=== PATIENT | male | born 1940 | race Caucasian/White ===

== ENCOUNTER 2017-02-11 07:23 | Inpatient (IN) | payer MEDICARE, BC ==
[2017-02-11] MEDS ORDERED: ALBUTEROL NEBULIZED 2.5 MG/3 ML INHALATION STA (07:45)
[2017-02-11] MEDS ORDERED: IPRATROPIUM 0.5 MG/2.5 ML NEBU INHALATION STA (07:45)
[2017-02-11] MEDS ORDERED: SODIUM CHLORIDE 0.9% 500 ML IV STA (07:45)
[2017-02-11] MEDS ORDERED: methylPREDNISolone SOD SUCCI 125 MG/2 ML VIAL IV STA (07:45)
--- NOTE | 2017-02-11 07:48 | ED ---
General Adult HPI - General Chief complaint: Shortness of Breath Stated complaint: diff breathing Time Seen by Provider: 02/11/17 07:25 Source: patient, family, RN notes reviewed Mode of arrival: wheelchair Limitations: no limitations - History of Present Illness Initial comments: This is a 76-year-old male who presents emergency Department stating that his past medical history significant for COPD as well as having had a pacemaker placed with the defibrillator. Patient states for the last week he said difficulty breathing has been getting worse. Patient states been stuck in [place] because of the fluttering and has an unable to get home to see his doctor. Patient states if he walks just 45 steps he is completely out of breath. She denies any fever chills or cough. Patient denies any chest pain palpitations. Patient states he has not had any abdominal pain patient denies nausea vomiting or diarrhea. Patient denies any back pain. Patient denies any headache patient denies any lightheadedness dizziness or near syncopal episode. Patient denies any numbness or weakness. She denies any calf pain or swelling in the ankles. Patient denies any previous known history of congestive heart failure. - Related Data Home Medications Medication Instructions Recorded Confirmed Budesonide/Formoterol Fumarate 1 puff INHALATION BID 01/21/15 06/27/16 [Symbicort 160-4.5 Mcg Inhaler] Calcium Carbonate/Vitamin D3 1 each PO DAILY 01/21/15 06/27/16 [Calcium 600-Vit D3 400 Tablet] Cholecalciferol [Vitamin D3] 2,000 unit PO DAILY 01/21/15 06/27/16 Losartan [Cozaar] 50 mg PO BID 01/21/15 06/27/16 Multivitamin [Men's Multi-Vitamin] 1 each PO DAILY 01/21/15 06/27/16 Vitamin B Complex 1 each PO DAILY 01/21/15 06/27/16 Albuterol Nebulized [Ventolin 2.5 mg INHALATION QID PRN 12/03/15 06/27/16 Nebulized] Ascorbic Acid [Vitamin C with Marcie 1,000 mg PO DAILY 12/03/15 06/27/16 Hips] Carvedilol [Coreg] 6.25 mg PO BID 12/20/15 06/27/16 Allergies Allergy/AdvReac Type Severity Reaction Status Date / Time fluticasone propionate Allergy Rash/Hives Verified 02/11/17 07:27 [From Advair Diskus] salmeterol xinafoate Allergy Rash/Hives Verified 02/11/17 07:27 [From Advair Diskus] Review of Systems ROS Statement: Those systems with pertinent positive or pertinent negative responses have been documented in the HPI. ROS Other: All systems not noted in ROS Statement are negative. Past Medical History Past Medical History: Asthma, COPD, Eye Disorder, Hypertension, Osteoarthritis ( OA) Additional Past Medical History / Comment(s): See Dr Gavin's H&P, History of Any Multi-Drug Resistant Organisms: None Reported Past Surgical History: AICD, Appendectomy, Orthopedic Surgery, Pacemaker, Tonsillectomy Additional Past Surgical History / Comment(s): SINUS SURG. RT Rotator Cuff Repair , carmencita cataracts Past Anesthesia/Blood Transfusion Reactions: No Reported Reaction Type of Cardiac Device: AICD Device Placement Date:: 03/30/2016 Past Psychological History: No Psychological Hx Reported Smoking Status: Former smoker Past Alcohol Use History: Occasional Additional Past Alcohol Use History / Comment(s): SMOKED TIL 1975, 15-20 YEARS, 1-2 PPD EST. Past Drug Use History: None Reported - Past Family History Mother Family Medical History: No Reported History Additional Family Medical History / Comment(s): Alzheimer Disease Father Family Medical History: No Reported History Brother(s) Additional Family Medical History / Comment(s): Alzheimer's Disease General Exam - General Exam Comments Initial Comments: GENERAL: Patient is well-developed and well-nourished. Patient is nontoxic and well- hydrated and is in moderate distress. ENT: Neck is soft and supple. No significant lymphadenopathy is noted. Oropharynx is clear. Moist mucous membranes. Neck has full range of motion without eliciting any pain. EYES: The sclera were anicteric and conjunctiva were pink and moist. Extraocular movements were intact and pupils were equal round and reactive to light. Eyelids were unremarkable. PULMONARY: Wheezing is diffuse CARDIOVASCULAR: Patient is tachycardic ABDOMEN: Soft and nontender with normal bowel sounds. SKIN: Skin is clear with no lesions or rashes and otherwise unremarkable. NEUROLOGIC: Patient is alert and oriented x3. Cranial nerves II through XII are grossly intact. Motor and sensory are also intact. Normal speech, volume and content. Symmetrical smile. MUSCULOSKELETAL: Normal extremities with adequate strength and full range of motion. No lower extremity swelling or edema. No calf tenderness. LYMPHATICS: No significant lymphadenopathy is noted PSYCHIATRIC: Normal psychiatric evaluation. Normal interpersonal interactions appears functionally intact in deals appropriately with others. No signs of depression. No signs of anxiety. Limitations: no limitations Course Vital Signs 02/11/17 02/11/17 02/11/17 07:25 07:56 08:14 Temperature 97.1 F L Pulse Rate 142 H 138 H 138 H Respiratory 24 Rate Blood Pressure 148/97 O2 Sat by Pulse 90 L Oximetry 02/11/17 08:46 Temperature Pulse Rate 142 H Respiratory Rate Blood Pressure O2 Sat by Pulse Oximetry Medical Decision Making - Medical Decision Making EKG shows wide complex tachycardia at 137 bpm QRS is 140 QT interval 360 QTC is 543. Patient's left bundle branch block. Patient was placed on BiPAP because his heart rate was so high and he still was having difficulty breathing after the treatments and steroids. The patient was on BiPAP while his heart rate came down to about 105 beats a minute and he was having an easier time breathing. Chest x-ray showed no acute abnormality. I spoke with Dr. Austin admitted the patient I wrote admitting orders to continue albuterol or steroids up on the floor I consult pulmonary. - Lab Data Result diagrams: 02/11/17 07:47 02/11/17 07:47 Lab Results 02/11/17 02/11/17 02/11/17 Range/Units 07:47 07:47 07:47 WBC 9.1 (3.8-10.6) k/uL RBC 5.10 (4.30-5.90) m/uL Hgb 14.9 (13.0-17.5) gm/dL Hct 44.1 (39.0-53.0) % MCV 86.5 (80.0-100.0) fL MCH 29.1 (25.0-35.0) pg MCHC 33.7 (31.0-37.0) g/dL RDW 13.0 (11.5-15.5) % Plt Count 268 (150-450) k/uL Neutrophils % 55 % Lymphocytes % 27 % Monocytes % 6 % Eosinophils % 7 % Basophils % 1 % Neutrophils # 5.0 (1.3-7.7) k/uL Lymphocytes # 2.5 (1.0-4.8) k/uL Monocytes # 0.6 (0-1.0) k/uL Eosinophils # 0.6 (0-0.7) k/uL Basophils # 0.1 (0-0.2) k/uL PT (9.0-12.0) sec INR (<1.1) APTT (22.0-30.0) sec Sodium 144 (137-145) mmol/L Potassium 4.3 (3.5-5.1) mmol/L Chloride 108 H (98-107) mmol/L Carbon Dioxide 26 (22-30) mmol/L Anion Gap 10 mmol/L BUN 15 (9-20) mg/dL Creatinine 1.09 (0.66-1.25) mg/dL Est GFR (MDRD) Af Amer >60 (>60 ml/min/1.73 sqM) Est GFR (MDRD) Non-Af >60 (>60 ml/min/1.73 sqM) Glucose 121 H (74-99) mg/dL Calcium 9.6 (8.4-10.2) mg/dL Magnesium 1.8 (1.6-2.3) mg/dL Total Bilirubin 0.7 (0.2-1.3) mg/dL AST 24 (17-59) U/L ALT 26 (21-72) U/L Alkaline Phosphatase 88 (38-126) U/L Total Creatine Kinase 93 (55-170) U/L CK-MB (CK-2) 2.7 H* (0.0-2.4) ng/mL CK-MB (CK-2) Rel Index 2.9 Troponin I 0.027 (0.000-0.034) ng/mL Total Protein 7.4 (6.3-8.2) g/dL Albumin 4.0 (3.5-5.0) g/dL 02/11/17 Range/Units 07:47 WBC (3.8-10.6) k/uL RBC (4.30-5.90) m/uL Hgb (13.0-17.5) gm/dL Hct (39.0-53.0) % MCV (80.0-100.0) fL MCH (25.0-35.0) pg MCHC (31.0-37.0) g/dL RDW (11.5-15.5) % Plt Count (150-450) k/uL Neutrophils % % Lymphocytes % % Monocytes % % Eosinophils % % Basophils % % Neutrophils # (1.3-7.7) k/uL Lymphocytes # (1.0-4.8) k/uL Monocytes # (0-1.0) k/uL Eosinophils # (0-0.7) k/uL Basophils # (0-0.2) k/uL PT 11.9 (9.0-12.0) sec INR 1.2 (<1.1) APTT 18.9 L (22.0-30.0) sec Sodium (137-145) mmol/L Potassium (3.5-5.1) mmol/L Chloride (98-107) mmol/L Carbon Dioxide (22-30) mmol/L Anion Gap mmol/L BUN (9-20) mg/dL Creatinine (0.66-1.25) mg/dL Est GFR (MDRD) Af Amer (>60 ml/min/1.73 sqM) Est GFR (MDRD) Non-Af (>60 ml/min/1.73 sqM) Glucose (74-99) mg/dL Calcium (8.4-10.2) mg/dL Magnesium (1.6-2.3) mg/dL Total Bilirubin (0.2-1.3) mg/dL AST (17-59) U/L ALT (21-72) U/L Alkaline Phosphatase (38-126) U/L Total Creatine Kinase (55-170) U/L CK-MB (CK-2) (0.0-2.4) ng/mL CK-MB (CK-2) Rel Index Troponin I (0.000-0.034) ng/mL Total Protein (6.3-8.2) g/dL Albumin (3.5-5.0) g/dL Critical Care Time Critical Care Time: Yes Total Critical Care Time: 35 Disposition Clinical Impression: COPD with acute exacerbation Disposition: ADMITTED IP TO THIS [facility] Time of Disposition: 09:58
[2017-02-11 08:03] LABS: Basophils # (A) 0.1 k/uL (0-0.2); Basophils % (A) 1 %; CH 29.4; CHCM 34.1; Eosinophils # (A) 0.6 k/uL (0-0.7); Eosinophils % (A) 7 %; HCT 44.1 % (39.0-53.0); HDW 2.99; HGB 14.9 gm/dL (13.0-17.5); Luc # (Auto) 0.34; Luc % (Auto) 4; Lymphocytes # (A) 2.5 k/uL (1.0-4.8); Lymphocytes % (A) 27 %; MCH 29.1 pg (25.0-35.0); MCHC 33.7 g/dL (31.0-37.0); MCV 86.5 fL (80.0-100.0); Mean Platelet Volume 6.6; Monocytes # (A) 0.6 k/uL (0-1.0); Monocytes % (A) 6 %; Neutrophils % (A) 55 %; WBC 9.1 k/uL (3.8-10.6)
[2017-02-11 08:18] LABS: ALT 26 U/L (21-72); AST 24 U/L (17-59); Alkaline Phosphatase 88 U/L (38-126); Anion Gap 10 mmol/L; Blood Urea Nitrogen 15 mg/dL (9-20); Calcium 9.6 mg/dL (8.4-10.2); Carbon Dioxide 26 mmol/L (22-30); Chloride 108 mmol/L (98-107); Glucose 121 mg/dL (74-99); Magnesium 1.8 mg/dL (1.6-2.3); Non-African American GFR(MDRD) >60 (>60 ml/min/1.73 sqM); Potassium 4.3 mmol/L (3.5-5.1); Sodium 144 mmol/L (137-145); Total Bilirubin 0.7 mg/dL (0.2-1.3); Total Protein 7.4 g/dL (6.3-8.2)
[2017-02-11 08:21] LABS: INR 1.2 (<1.1); Prothrombin Time 11.9 sec (9.0-12.0)
[2017-02-11 08:33] LABS: Partial Thromboplastin Time 18.9 sec (22.0-30.0)
[2017-02-11 08:37] LABS: Troponin I 0.027 ng/mL (0.000-0.034)
[2017-02-11 08:38] LABS: Creatine Kinase MB 2.7 ng/mL (0.0-2.4)
--- NOTE | 2017-02-11 09:47 | XR ---
EXAMINATION TYPE: XR chest 1V DATE OF EXAM: 02/11/2017 9:20 AM COMPARISON: 09/18/2016 HISTORY: Difficult breathing TECHNIQUE: Single frontal view of the chest is obtained. FINDINGS: Lungs are hyperaerated. There is flattening of the diaphragms and tapering of the pulmonar y vasculature. Findings compatible with underlying COPD. Cardia mediastinal silhouette is not enlarge d and stable with a multilead left-sided cardiac device in place. Biapical pleural-parenchymal thicke kvng is noted. No focal consolidation or pulmonary vascular congestion. Degenerative changes of the g lenohumeral joints and visualized thoracic spine. IMPRESSION: 1. No focal consolidation. No acute cardiopulmonary pathology. 3. Sequela of COPD.
[2017-02-11] MEDS: methylPREDNISolone SOD SUCCI 125 MG/2 ML VIAL IV SCH ×3 (14:02→23:00)
--- NOTE | 2017-02-11 14:09 | P.HPIM ---
History of Present Illness H&P Date: 02/11/17 Chief Complaint: Worsening shortness of breath Jose M Stevenson is a 76-year-old male who presented to [facility] emergency room with a chief complaint of worsening shortness of breath , patient was seen in our office about 4 weeks ago, at that time he had evidence of acute bronchitis with COPD exacerbation he was given a course of oral antibiotic and oral steroids, patient traveled to [place] and did not keep his follow-up appointment, he states he was stuck in the [place] in [place] and was not feeling with his condition was getting worse, when he came back to [place] he came to emergency room he was evaluated and was admitted to telemetry floor he had evidence of acute exacerbation of COPD with acute hypoxic respiratory failure he was started on BiPAP he was also started on IV antibiotic, IV steroids, and inhaled bronchodilators he was admitted to telemetry floor. Past Medical History Past Medical History: Asthma, COPD, Eye Disorder, Hypertension, Osteoarthritis ( OA) Additional Past Medical History / Comment(s): See Dr Gavin's H&P, History of Any Multi-Drug Resistant Organisms: None Reported Past Surgical History: AICD, Appendectomy, Orthopedic Surgery, Pacemaker, Tonsillectomy Additional Past Surgical History / Comment(s): SINUS SURG. RT Rotator Cuff Repair , carmencita cataracts Past Anesthesia/Blood Transfusion Reactions: No Reported Reaction Type of Cardiac Device: AICD Device Placement Date:: 03/30/2016 Past Psychological History: No Psychological Hx Reported Smoking Status: Former smoker Past Alcohol Use History: Occasional Additional Past Alcohol Use History / Comment(s): SMOKED TIL 1975, 15-20 YEARS, 1-2 PPD EST. Past Drug Use History: None Reported - Past Family History Mother Family Medical History: No Reported History Additional Family Medical History / Comment(s): Alzheimer Disease Father Family Medical History: No Reported History Brother(s) Additional Family Medical History / Comment(s): Alzheimer's Disease Medications and Allergies Home Medications Medication Instructions Recorded Confirmed Type Budesonide/Formoterol Fumarate 1 puff INHALATION BID 01/21/15 02/11/17 History [Symbicort 160-4.5 Mcg Inhaler] Calcium Carbonate/Vitamin D3 1 each PO DAILY 01/21/15 02/11/17 History [Calcium 600-Vit D3 400 Tablet] Cholecalciferol [Vitamin D3] 2,000 unit PO DAILY 01/21/15 02/11/17 History Losartan [Cozaar] 50 mg PO BID 01/21/15 02/11/17 History Multivitamin [Men's Multi-Vitamin] 1 each PO DAILY 01/21/15 02/11/17 History Vitamin B Complex 1 each PO DAILY 01/21/15 02/11/17 History Albuterol Nebulized [Ventolin 2.5 mg INHALATION QID PRN 12/03/15 02/11/17 History Nebulized] Ascorbic Acid [Vitamin C with Marcie 1,000 mg PO DAILY 12/03/15 02/11/17 History Hips] Carvedilol [Coreg] 6.25 mg PO BID 12/20/15 02/11/17 History Allergies Allergy/AdvReac Type Severity Reaction Status Date / Time fluticasone propionate Allergy Rash/Hives Verified 02/11/17 11:00 [From Adv[place] Diskus] salmeterol xinafoate Allergy Rash/Hives Verified 02/11/17 11:00 [From AdvCarbon [place] Diskus] Physical Exam Vitals: Vital Signs Temp Pulse Pulse Resp BP BP Pulse Ox 02/11/17 11:24 97.3 F L 109 H 25 H 147/83 96 02/11/17 10:36 97.3 F L 111 H 25 H 164/86 95 02/11/17 10:34 97.9 F 111 H 25 H 134/79 98 Intake and Output 02/10/17 02/11/17 02/11/17 22:59 06:59 14:59 Other: Weight 68.039 kg Patient Weight 02/12/17 06:59 Weight 68.039 kg In general patient is alert and oriented 3 in no apparent distress HEENT head normocephalic and atraumatic Neck is supple no JVD no goiter no lymphadenopathy Chest exam reveals a few scattered rhonchi no wheezing Cardiac exam reveals regular heart sounds no gallops no murmurs Abdomen is soft nontender no organomegaly Extremity exam reveals no edema no cyanosis or clubbing Results CBC & Chem 7: 02/11/17 07:47 02/11/17 07:47 Assessment and Plan Plan: #1 acute exacerbation of chronic obstructive pulmonary disease #2 acute hypoxic respiratory failure #3 acute purulent bronchitis #4 underlying history of hypertension #5 underlying history of congestive heart failure with history of pacemaker and defibrillator placement, patient has severe cardiomyopathy ejection fraction on cardiac catheterization done 1 year ago was 10-15% At this time patient was started on IV antibiotic Rocephin and Zithromax, IV steroids Solu-Medrol 60 mg IV every 6 hours, [facility] Pulmonary consultation was requested Continue was current management will follow closely prognosis is guarded due to the severity of his heart and lung disease
[2017-02-11] MEDS: ASCORBIC ACID 500 MG TAB PO SCH (14:39)
[2017-02-11] MEDS: LOSARTAN 50 MG TAB PO SCH ×2 (14:39→21:29)
[2017-02-11] MEDS: B COMPLEX-VIT C-VIT E-ZINC 1 EACH TAB PO SCH (14:39)
[2017-02-11] MEDS ORDERED: AZITHROMYCIN 500 MG in SODIUM CHLORIDE 0.9% 250 ML IVPB SCH (15:00)
[2017-02-11 17:15] LABS: Glucose,Whole Blood 136 mg/dL (75-99)
[2017-02-11] MEDS: CARVEDILOL 6.25 MG TAB PO SCH (17:20)
[2017-02-11] MEDS: INSULIN LISPRO (humaLOG) 300 UNIT/3 ML VIAL SQ SCH ×2 (17:20→21:28)
[2017-02-11] MEDS: IPRATROPIUM-ALBUTEROL 3 ML NEB INHALATION PRN (20:05)
[2017-02-11 21:44] LABS: Glucose,Whole Blood 138 mg/dL (75-99)
[2017-02-12] MEDS: INSULIN LISPRO (humaLOG) 300 UNIT/3 ML VIAL SQ SCH ×5 (06:41→21:26)
[2017-02-12] MEDS: methylPREDNISolone SOD SUCCI 125 MG/2 ML VIAL IV SCH ×3 (06:41→17:25)
[2017-02-12] MEDS: CARVEDILOL 6.25 MG TAB PO SCH (06:42)
[2017-02-12 06:48] LABS: Basophils % (A) 0 %; CH 29.3; CHCM 33.1; Eosinophils % (A) 0 %; HCT 40.9 % (39.0-53.0); HDW 2.75; HGB 13.3 gm/dL (13.0-17.5); Luc # (Auto) 0.05; Luc % (Auto) 0; Lymphocytes # (A) 0.8 k/uL (1.0-4.8); Lymphocytes % (A) 6 %; MCH 28.9 pg (25.0-35.0); MCHC 32.5 g/dL (31.0-37.0); MCV 88.8 fL (80.0-100.0); Mean Platelet Volume 6.7; Monocytes # (A) 0.2 k/uL (0-1.0); Monocytes % (A) 2 %; Neutrophils # (A) 11.2 k/uL (1.3-7.7); Neutrophils % (A) 91 %; RDW 13.2 % (11.5-15.5); WBC 12.3 k/uL (3.8-10.6); WBC (Perox) 13.04
[2017-02-12 06:50] LABS: Glucose,Whole Blood 127 mg/dL (75-99)
[2017-02-12 07:06] LABS: ALT 21 U/L (21-72); AST 21 U/L (17-59); Alkaline Phosphatase 72 U/L (38-126); Anion Gap 11 mmol/L; Blood Urea Nitrogen 24 mg/dL (9-20); Calcium 9.4 mg/dL (8.4-10.2); Carbon Dioxide 24 mmol/L (22-30); Chloride 107 mmol/L (98-107); Glucose 134 mg/dL (74-99); Non-African American GFR(MDRD) 59 (>60 ml/min/1.73 sqM); Potassium 4.7 mmol/L (3.5-5.1); Sodium 142 mmol/L (137-145); Total Bilirubin 0.4 mg/dL (0.2-1.3); Total Protein 6.5 g/dL (6.3-8.2)
[2017-02-12] MEDS: B COMPLEX-VIT C-VIT E-ZINC 1 EACH TAB PO SCH (07:55)
[2017-02-12] MEDS: ASCORBIC ACID 500 MG TAB PO SCH (07:55)
[2017-02-12] MEDS: CHOLECALCIFEROL 1,000 UNIT TAB PO SCH (07:55)
[2017-02-12] MEDS: LOSARTAN 50 MG TAB PO SCH ×2 (07:56→20:18)
[2017-02-12] MEDS: CALCIUM CARB-VIT D 500MG-200UN 1 EACH TAB PO SCH (07:57)
[2017-02-12] MEDS: LEVALBUTEROL NEB 1.25 MG/3 ML AMP INHALATION SCH ×4 (08:47→19:58)
[2017-02-12 10:14] LABS: Magnesium 1.7 mg/dL (1.6-2.3)
--- NOTE | 2017-02-12 10:20 | P.PN ---
Subjective Is a 76-year-old male presented with worsening shortness of breath. He is being treated for COPD exacerbation and bronchitis. Failed outpatient treatment. Patient denies any chest pain. Currently still on high flow oxygen. He had episode of nonsustained ventricle tachycardia and then return to paced rhythm. Cardiology will be consulted. His breathing treatments were switched to Xopenex due to tachycardia. Patient denied any heart palpitations or chest pain at that time. Denies any nausea or vomiting. Denies any bowel movement changes or urinary symptoms. Objective - Vital Signs Vital signs: Vital Signs Temp 97.0 F L 02/12/17 07:50 Pulse 84 02/12/17 09:03 Resp 22 02/12/17 07:50 BP 144/70 02/12/17 07:50 Pulse Ox 95 02/12/17 07:50 Intake & Output 02/11/17 02/12/17 02/12/17 18:59 06:59 18:59 Intake Total 425 0 180 Output Total 175 Balance 425 -175 180 Weight 68.039 kg 68 kg Intake: IV 0 cefTRIAXone 1,000 mg In 0 Sodium Chloride 0.9% 50 ml @ 100 mls/hr IVPB Q24H [facility] Rx#:[id number] Intake, IV Titration 225 Amount Azithromycin 500 mg In 125 Sodium Chloride 0.9% 250 ml @ 125 mls/hr IVPB DAILY@1500 J[facility]I Rx#: [id number] cefTRIAXone 1,000 mg In 100 Sodium Chloride 0.9% 50 ml @ 100 mls/hr IVPB Q24H J[facility]I Rx#:[id number] Oral 200 180 Output: Urine 175 Other: Voiding Method Bedside Commode Urinal - Exam Head normocephalic Neck supple Lungs diminished bilaterally Heart regular rate and rhythm S1-S2, no rub or gallop Abdomen is soft nontender nondistended positive bowel sounds no hepatosplenomegaly Extremities no edema Neuro alert and orientated to 3 - Labs CBC & Chem 7: 02/12/17 06:07 02/12/17 06:07 Labs: Abnormal Lab Results - Last 24 Hours (Table) 02/11/17 02/11/17 02/12/17 Range/Units 17:14 21:24 06:07 WBC 12.3 H (3.8-10.6) k/uL Neutrophils # 11.2 H (1.3-7.7) k/uL Lymphocytes # 0.8 L (1.0-4.8) k/uL BUN (9-20) mg/dL Glucose (74-99) mg/dL POC Glucose (mg/dL) 136 H 138 H (75-99) mg/dL 02/12/17 02/12/17 Range/Units 06:07 06:29 WBC (3.8-10.6) k/uL Neutrophils # (1.3-7.7) k/uL Lymphocytes # (1.0-4.8) k/uL BUN 24 H (9-20) mg/dL Glucose 134 H (74-99) mg/dL POC Glucose (mg/dL) 127 H (75-99) mg/dL Assessment and Plan Plan: #1 acute exacerbation of chronic obstructive pulmonary disease: Pulmonary service consulted. Continue IV steroids. dilators have been adjusted to Xopenex due to tachycardia #2 acute hypoxic respiratory failure secondary to COPD exacerbation and bronchitis #3 acute purulent bronchitis continue azithromycin and Rocephin. No evidence of pneumonia on chest x-ray. Pulmonary following. Failed outpatient antibiotics. #4 underlying history of hypertension #5 underlying history of congestive heart failure with history of pacemaker and defibrillator placement, patient has severe cardiomyopathy ejection fraction on cardiac catheterization done 1 year ago was 10-15% #6 episode of nonsustained ventricle tachycardia: Continue telemetry monitoring. Cardiac he has been consulted. Neck thyroid levels. Check magnesium and potassium level is 4.7 GI prophylaxis Pepcid and DVT prophylaxis subcu heparin I performed an examination of the patient and discussed their management with the physician Farmworker Machine. I have reviewed the Physician Farmworker Machine's notes and agree with the documented findings and plan of care
[2017-02-12] MEDS: IPRATROPIUM-ALBUTEROL 3 ML NEB INHALATION PRN (10:55)
[2017-02-12] MEDS: MULTIVITAMINS, THERA 1 EACH TAB PO SCH (11:11)
[2017-02-12 11:35] LABS: Hemoglobin A1C 5.6 % (4.2-6.1)
[2017-02-12 12:04] LABS: Glucose,Whole Blood 127 mg/dL (75-99)
[2017-02-12 16:58] LABS: Glucose,Whole Blood 125 mg/dL (75-99)
[2017-02-12] MEDS ORDERED: CARVEDILOL 6.25 MG TAB PO STA (17:23)
[2017-02-12] MEDS: AZITHROMYCIN 500 MG TAB PO SCH (17:41)
[2017-02-12] MEDS: CARVEDILOL 12.5 MG TAB PO SCH (17:41)
--- NOTE | 2017-02-12 18:22 | CONS ---
DATE OF CONSULTATION: This is a 76-year-old gentleman with a history of underlying COPD. The patient apparently presented with complaints of increasing shortness of breath. In addition, he apparently had chest congestion, cough, coughing up phlegm. No fever. No chills. No chest pain. He was having some fluttering in his chest. No abdominal pain. No nausea, vomiting or diarrhea. The patient was taking a breathing treatment when I first came into the room. He was seen in the emergency room and admitted with a diagnosis of COPD exacerbation. His home medications included: 1. Symbicort. 2. Calcium with vitamin D3. 3. Cozaar. 4. Multiple vitamins. 5. Vitamin B. 6. Updrafts with albuterol. 7. Ascorbic acid. 8. Coreg. ALLERGIES include ADVAIR. Medical history includes: 1. COPD. 2. Hypertension. 3. Osteoarthritis. Surgical history includes: 1. AICD placement. 2. Appendectomy. 3. Pacemaker placement. 4. Tonsillectomy. 5. Sinus surgery. 6. Right rotator cuff repair. 7. Bilateral cataract surgery. Social history is positive for previous heavy tobacco use. Denies any significant alcohol use. Drinks occasionally. No illicit drug use. Family history is positive for dementia in many of his family members. Occupational history is noncontributory. REVIEW OF SYSTEMS: CONSTITUTIONAL: Negative. NEUROLOGICAL: Negative. HEENT: Negative. CARDIOVASCULAR: Negative. PULMONARY: Shortness of breath, difficulty breathing, chest congestion, chest tightness, wheezing, cough. GI/: Negative. RHEUMATOLOGICAL/IMMUNOLOGIC: Negative. ENDOCRINOLOGIC: Negative. DERMATOLOGIC: Negative. Current vital signs include temperature 97, heart rate 80, respiratory rate 18, blood pressure 144/70, mean 94, and saturations are 95% on high-flow oxygen. Appears in no acute distress. Mildly tachypneic and dyspneic. HEENT examination is grossly unremarkable. Mucous membranes are moist. No oral lesions. NECK: Supple. Full range of motion. No adenopathy or thyromegaly. Neck veins are flat. Cardiovascular examination reveals regular rhythm and rate. S1, S2 normal. No S3, S4 or murmur. Lungs reveal coarse rhonchi and wheezes. Breath sounds diminished. There is prolongation. Breath sounds are equal bilaterally. ABDOMEN: Soft. Bowel sounds are heard. No masses or tenderness. EXTREMITIES: Intact. No cyanosis, clubbing or edema. Skin is without rash. Neurological examination is nonfocal. Chest x-ray shows changes of COPD. Labs are reviewed. White count 12.3, hemoglobin 13.3, hematocrit 40.9, platelet count normal. Sodium, potassium, chloride, CO2 all normal. BUN and creatinine were 24 and 1.20. TSH was 0.177. Medications are reviewed. The patient is on: 1. Zithromax. 2. Atrovent. 3. DuoNeb. 4. Solu-Medrol. 5. Ceftriaxone. ASSESSMENT: 1. Chronic obstructive pulmonary disease exacerbation complicated by purulent tracheobronchitis without radha pneumonia. 2. Status post automatic implantable cardioverter defibrillator placement. 3. History of hypertension. 4. History of degenerative joint disease. PLAN: Will continue to follow. The patient does not need all that antibiotic. Chest x-ray was okay. Will switch him just to oral Zithromax. Will discontinue the other antibiotic. Will put him on Symbicort. Additional recommendations and suggestions are forthcoming. Prognosis is guarded.
[2017-02-12] MEDS: SYMBICORT 160-4.5 MCG INHALER INHALATION SCH (19:59)
[2017-02-12] MEDS: HEPARIN SODIUM,PORCINE 5,000 UNIT/ML 1 ML VIAL SQ SCH (20:18)
[2017-02-12 20:51] LABS: Glucose,Whole Blood 142 mg/dL (75-99)
[2017-02-12] MEDS: ALPRAZolam 0.5 MG TAB PO PRN (22:07)
[2017-02-13] MEDS: methylPREDNISolone SOD SUCCI 125 MG/2 ML VIAL IV SCH ×5 (00:51→23:12)
[2017-02-13 06:29] LABS: Glucose,Whole Blood 117 mg/dL (75-99)
[2017-02-13] MEDS: INSULIN LISPRO (humaLOG) 300 UNIT/3 ML VIAL SQ SCH ×4 (06:38→23:12)
[2017-02-13] MEDS: CARVEDILOL 12.5 MG TAB PO SCH ×2 (06:41→17:16)
[2017-02-13] MEDS: FAMOTIDINE 20 MG TAB PO SCH (08:00)
[2017-02-13] MEDS: CHOLECALCIFEROL 1,000 UNIT TAB PO SCH (08:00)
[2017-02-13] MEDS: LOSARTAN 50 MG TAB PO SCH ×2 (08:00→20:32)
[2017-02-13] MEDS: ASCORBIC ACID 500 MG TAB PO SCH (08:00)
[2017-02-13] MEDS: HEPARIN SODIUM,PORCINE 5,000 UNIT/ML 1 ML VIAL SQ SCH ×2 (08:00→20:33)
[2017-02-13] MEDS: CALCIUM CARB-VIT D 500MG-200UN 1 EACH TAB PO SCH (08:00)
[2017-02-13] MEDS: B COMPLEX-VIT C-VIT E-ZINC 1 EACH TAB PO SCH (08:00)
[2017-02-13] MEDS: LEVALBUTEROL NEB 1.25 MG/3 ML AMP INHALATION SCH ×3 (08:14→19:19)
[2017-02-13] MEDS: SYMBICORT 160-4.5 MCG INHALER INHALATION SCH ×2 (08:15→19:19)
[2017-02-13] MEDS: ALPRAZolam 0.5 MG TAB PO PRN (09:51)
[2017-02-13 11:41] LABS: Glucose,Whole Blood 119 mg/dL (75-99)
[2017-02-13] MEDS: MULTIVITAMINS, THERA 1 EACH TAB PO SCH (11:50)
--- NOTE | 2017-02-13 12:26 | P.CRDCN ---
History of Present Illness Consult date: 02/13/17 Chief complaint: Shortness of breath History of present illness: This is a pleasant 76-year-old gentleman who sees Dr. Burgess as an outpatient with a past medical history significant for severe nonischemic cardiomyopathy and status post bi-V ICD was performed recently, and COPD, presented to the hospital because he was not feeling well. The patient just came from a long trip from [place]. Over the last 2-3 weeks he has been experiencing progressive exertional dyspnea without orthopnea or PND. No bilateral lower extremities edema. Did not have any chest pain or discomfort. He has been experiencing ago what it seems to be cough productive of sputum. No fever or chills. He was treated as an outpatient for acute bronchitis without improvement. The chest x-ray showed findings consistent with COPD. No acute finding. We get involved in the care of the patient because what it seems to be cardiac arrhythmia. The patient has by the ICD. I reviewed the rhythm strip which showed what it seems to be an atrial sensed ventricular paced rhythm with a tachycardia. The cardiac enzymes were checked and came in to be within normal limits. We will interrogate the bi-V ICD device. From the cardiovascular standpoint of view, the patient seems to be hemodynamically stable at this point. I would not recommend proceeding with any cardiac testing. Past Medical History Past Medical History: Asthma, COPD, Eye Disorder, Hypertension, Osteoarthritis ( OA) Additional Past Medical History / Comment(s): See Dr Gavin's H&P, History of Any Multi-Drug Resistant Organisms: None Reported Past Surgical History: AICD, Appendectomy, Orthopedic Surgery, Pacemaker, Tonsillectomy Additional Past Surgical History / Comment(s): SINUS SURG. RT Rotator Cuff Repair , carmencita cataracts Past Anesthesia/Blood Transfusion Reactions: No Reported Reaction Type of Cardiac Device: AICD Device Placement Date:: 03/30/2016 Past Psychological History: No Psychological Hx Reported Smoking Status: Former smoker Past Alcohol Use History: Occasional Additional Past Alcohol Use History / Comment(s): SMOKED TIL 1975, 15-20 YEARS, 1-2 PPD EST. Past Drug Use History: None Reported - Past Family History Mother Family Medical History: No Reported History Additional Family Medical History / Comment(s): Alzheimer Disease Father Family Medical History: No Reported History Brother(s) Additional Family Medical History / Comment(s): Alzheimer's Disease Medications and Allergies Home Medications Medication Instructions Recorded Confirmed Type Budesonide/Formoterol Fumarate 1 puff INHALATION DAILY 01/21/15 02/12/17 History [Symbicort 160-4.5 Mcg Inhaler] Calcium Carbonate/Vitamin D3 1 tab PO DAILY 01/21/15 02/12/17 History [Calcium 600-Vit D3 400 Tablet] Losartan [Cozaar] 50 mg PO BID 01/21/15 02/12/17 History Multivitamin [Men's Multi-Vitamin] 1 tab PO DAILY 01/21/15 02/12/17 History Albuterol Nebulized [Ventolin 2.5 mg INHALATION RT-QID PRN 12/03/15 02/12/17 History Nebulized] Aspirin 325 mg PO DAILY 02/12/17 02/12/17 History Carvedilol [Coreg] 12.5 mg PO BID 02/12/17 02/12/17 History Cialis 5mg 1 tab PO DAILY 02/12/17 02/12/17 History Allergies Allergy/AdvReac Type Severity Reaction Status Date / Time fluticasone propionate Allergy Rash/Hives Verified 02/11/17 11:00 [From Advair Diskus] salmeterol xinafoate Allergy Rash/Hives Verified 02/11/17 11:00 [From Advair Diskus] Physical Exam Vitals: Vital Signs Temp Pulse Pulse Resp BP Pulse Ox 02/13/17 08:27 88 02/13/17 08:20 96 02/13/17 08:19 76 02/13/17 08:00 97.9 F 64 20 136/67 100 02/13/17 03:17 18 02/13/17 03:16 97.4 F L 67 18 145/77 96 02/13/17 00:00 97 F L 60 20 132/64 95 02/12/17 20:42 90 02/12/17 20:00 84 79 24 151/80 92 L 02/12/17 17:00 96.8 F L 95 18 143/91 96 Intake and Output 02/12/17 02/13/17 02/13/17 22:59 06:59 14:59 Intake Total 180 0 240 Output Total 150 425 Balance 30 -425 240 Intake: Intake, IV Titration 0 Amount Azithromycin 500 mg In 0 Sodium Chloride 0.9% 250 ml @ 125 mls/hr IVPB DAILY@1500 JAMI Rx#: [id number] Oral 180 240 Output: Urine 150 425 Other: Voiding Method Bedside Commode Bedside Commode Urinal Urinal Weight 68.1 kg - Constitutional General appearance: no acute distress - Respiratory Respiratory: bilateral: CTA - Cardiovascular Rhythm: regular Heart sounds: normal: S1, S2 Results 02/12/17 06:07 02/12/17 06:07 Current Medications Generic Name Dose Route Start Last Admin Trade Name Freq PRN Reason Stop Dose Admin Alprazolam 0.5 mg 02/12/17 21:47 02/13/17 09:51 Xanax PO 0.5 mg QID PRN Administration Anxiety Ascorbic Acid 1,000 mg 02/11/17 13:45 02/13/17 08:00 Vitamin C PO 1,000 mg DAILY JAMI Administration Azithromycin 500 mg 02/12/17 15:00 02/12/17 17:41 Zithromax PO 500 mg 1500 JAMI Administration Budesonide/Formoterol Fumarate 2 puff 02/12/17 20:00 02/13/17 08:15 Symbicort 160-4.5 Mcg Inhaler INHALATION 2 puff RT-BID JAMI Administration Calcium Carbonate 1 each 02/12/17 09:00 02/13/17 08:00 Oscal 500+D PO 1 each DAILY JAMI Administration Carvedilol 12.5 mg 02/12/17 17:30 02/13/17 06:41 Coreg PO 12.5 mg BID-W/MEALS JAMI Administration Cholecalciferol 2,000 unit 02/12/17 09:00 02/13/17 08:00 Vitamin D3 PO 2,000 unit DAILY JAMI Administration Famotidine 20 mg 02/13/17 09:00 02/13/17 08:00 Pepcid PO 20 mg DAILY JAMI Administration Heparin Sodium (Porcine) 5,000 unit 02/12/17 21:00 02/13/17 08:00 Heparin SQ 5,000 unit Q12HR JAMI Administration Insulin Human Lispro 0 unit 02/11/17 17:30 02/13/17 11:42 Humalog SQ Not Given ACHS JAMI Protocol Levalbuterol HCl 1.25 mg 02/12/17 08:00 02/13/17 08:14 Xopenex Nebulized INHALATION 1.25 mg RT-TID JAMI Administration Losartan Potassium 50 mg 02/11/17 14:00 02/13/17 08:00 Cozaar PO 50 mg BID JAMI Administration Methylprednisolone Sodium Succinate 60 mg 02/11/17 12:00 02/13/17 11:50 Solu-Medrol IV 60 mg Q6HR JAMI Administration Multivitamins 1 each 02/12/17 12:00 02/13/17 11:50 Theragran PO 1 each DAILY@1200 JAMI Administration Tiotropium [place] 1 puff 02/13/17 13:00 Spiriva INHALATION RT-DAILY JAMI Vitamin B Complex/Vit C/Vit E/Zinc 1 each 02/11/17 13:45 02/13/17 08:00 Z-Bec PO 1 each DAILY JAMI Administration Intake and Output 02/12/17 02/13/17 02/13/17 22:59 06:59 14:59 Intake Total 180 0 240 Output Total 150 425 Balance 30 -425 240 Intake: Intake, IV Titration 0 Amount Azithromycin 500 mg In 0 Sodium Chloride 0.9% 250 ml @ 125 mls/hr IVPB DAILY@1500 JAMI Rx#: [id number] Oral 180 240 Output: Urine 150 425 Other: Voiding Method Bedside Commode Bedside Commode Urinal Urinal Weight 68.1 kg 02/12/17 06:07 02/12/17 06:07 Assessment and Plan Plan: Assessment #1 COPD exacerbation #2 possible pneumonia/bronchitis #3 cardiac arrhythmia #4 severity of cardiomyopathy #5 status post by the ICD Plan #1 ICD interrogation #2 continue the current medical treatment including the Coreg #3 follow-up with the patient
--- NOTE | 2017-02-13 12:49 | P.PN ---
Subjective Principal diagnosis: Acute exacerbation of chronic obstructive pulmonary disease Is a very pleasant 76-year-old gentleman who follows with Dr. Hi in our office for chronic obstructive pulmonary disease. He was admitted on 2016 for an acute exacerbation of the same. He had traveled from his surgery with worsening shortness of breath cough and congestion. Asked x-ray did not reveal any radha pulmonary edema or pneumonia. Seen again today in follow-up on the selective care unit. He is awake and alert in no acute distress. He is quite dyspneic on minimal exertion as well as with conversation. Is requiring 35% FiO2 via high flow nasal cannula during O2 saturations in the 90s. He is afebrile. Hemodynamically stable. Blood cultures reveal no growth to date. Objective - Vital Signs Vital signs: Vital Signs Temp 97.9 F 02/13/17 08:00 Pulse 88 02/13/17 08:27 Resp 20 02/13/17 08:00 BP 136/67 02/13/17 08:00 Pulse Ox 96 02/13/17 08:20 Intake & Output 02/12/17 02/13/17 02/13/17 18:59 06:59 18:59 Intake Total 360 0 240 Output Total 450 575 Balance -90 -575 240 Weight 68 kg 68.1 kg Intake: Intake, IV Titration 0 Amount Azithromycin 500 mg In 0 Sodium Chloride 0.9% 250 ml @ 125 mls/hr IVPB DAILY@1500 JAMI Rx#: [id number] Oral 360 240 Output: Urine 450 575 Other: Voiding Method Bedside Commode Bedside Commode Urinal Urinal # Voids 3 - Exam GENERAL EXAM: Alert, dyspneic on minimal exertion. HEAD: Normocephalic. EYES: Normal reaction of pupils, equal size. NOSE: Clear with pink turbinates. Nasal prongs in place. THROAT: No erythema or exudates. NECK: No masses, no JVD. CHEST: No chest wall deformity. LUNGS: Equal air entry with bilateral end expiratory wheeze, few scattered rhonchi. Diminished throughout.r CVS: S1 and S2 normal with no audible mumurs, regular rhythm. ABDOMEN: No hepatosplenomegaly, normal bowel sounds, no guarding or rigidity. SPINE: No scoliosis or deformity SKIN: No rashes CENTRAL NERVOUS SYSTEM: No focal deficits, tone is normal in all 4 extremities. Extremities: There is no significant peripheral edema. No clubbing, no cyanosis. Peripheral pulses are intact. - Labs CBC & Chem 7: 02/12/17 06:07 02/12/17 06:07 Labs: Abnormal Lab Results - Last 24 Hours (Table) 02/12/17 02/12/17 02/13/17 Range/Units 16:41 20:48 06:23 POC Glucose (mg/dL) 125 H 142 H 117 H (75-99) mg/dL 02/13/17 Range/Units 11:40 POC Glucose (mg/dL) 119 H (75-99) mg/dL Assessment and Plan Plan: Impression: #1 Acute exacerbation of chronic obstructive pulmonary disease, complicated by purulent tracheobronchitis. #2 Hypertension, history of. #3 Nonischemic cardiomyopathy status post biventricular ICD placement. Her grafts #4 Osteoarthritis. Plan: The patient was seen and evaluated by Dr. Hi. He is improved today as compared to yesterday. He has still not quite back to his baseline. We'll continue with his current medications. We will increase his activity as tolerated. We'll continue to follow.
[2017-02-13] MEDS: TIOTROPIUM 18 MCG/PUFF INHALER INHALATION SCH (13:26)
[2017-02-13] MEDS: AZITHROMYCIN 500 MG TAB PO SCH (15:02)
[2017-02-13 16:37] LABS: Glucose,Whole Blood 143 mg/dL (75-99)
--- NOTE | 2017-02-13 17:17 | P.PN ---
Subjective Principal diagnosis: Acute exacerbation of COPD Is a 76-year-old male presented with worsening shortness of breath. He is being treated for COPD exacerbation and bronchitis. Failed outpatient treatment. Patient denies any chest pain. Currently still on high flow oxygen. He had episode of nonsustained ventricle tachycardia and then return to paced rhythm. Cardiology are following. His breathing treatments were switched to Xopenex due to tachycardia. Patient denied any heart palpitations or chest pain at that time. Objective - Vital Signs Vital signs: Vital Signs Temp 98.0 F 02/13/17 15:33 Pulse 85 02/13/17 16:00 Resp 18 02/13/17 16:00 BP 132/61 02/13/17 15:33 Pulse Ox 98 02/13/17 15:33 Intake & Output 02/12/17 02/13/17 02/13/17 18:59 06:59 18:59 Intake Total 360 0 730 Output Total 450 575 600 Balance -90 -575 130 Weight 68 kg 68.1 kg Intake: Intake, IV Titration 0 Amount Azithromycin 500 mg In 0 Sodium Chloride 0.9% 250 ml @ 125 mls/hr IVPB DAILY@1500 JAMI Rx#: [id number] Oral 360 730 Output: Urine 450 575 600 Other: Voiding Method Bedside Commode Bedside Commode Urinal Urinal # Voids 3 2 - Exam In general patient is alert and oriented in no apparent distress HEENT head normocephalic and atraumatic Neck is supple no JVD no goiter no lymphadenopathy Chest exam reveals distant respiratory sounds with few scattered rhonchi Cardiac exam reveals regular heart sounds no murmurs Abdomen is soft nontender no organomegaly Extremity exam reveals no edema no cyanosis or clubbing - Labs CBC & Chem 7: 02/12/17 06:07 02/12/17 06:07 Labs: Abnormal Lab Results - Last 24 Hours (Table) 02/12/17 02/13/17 02/13/17 Range/Units 20:48 06:23 11:40 POC Glucose (mg/dL) 142 H 117 H 119 H (75-99) mg/dL 02/13/17 Range/Units 16:34 POC Glucose (mg/dL) 143 H (75-99) mg/dL Assessment and Plan Plan: #1 acute exacerbation of chronic obstructive pulmonary disease #2 acute hypoxic respiratory failure #3 acute purulent bronchitis #4 underlying history of hypertension #5 underlying history of congestive heart failure with history of pacemaker and defibrillator placement, patient has severe cardiomyopathy ejection fraction on cardiac catheterization done 1 year ago was 10-15% #6 episode of nonsustained V. tach At this time patient was started on IV antibiotic Rocephin and Zithromax, IV steroids Solu-Medrol 60 mg IV every 6 hours, Mire[facility] Pulmonary consultation and cardiology consultation are following Continue was current management will follow closely prognosis is guarded due to the severity of his heart and lung disease
[2017-02-13 20:55] LABS: Glucose,Whole Blood 143 mg/dL (75-99)
[2017-02-14] MEDS: INSULIN LISPRO (humaLOG) 300 UNIT/3 ML VIAL SQ SCH ×4 (06:27→21:24)
[2017-02-14 06:28] LABS: Glucose,Whole Blood 115 mg/dL (75-99)
[2017-02-14] MEDS: methylPREDNISolone SOD SUCCI 125 MG/2 ML VIAL IV SCH ×3 (06:31→16:59)
[2017-02-14] MEDS: CARVEDILOL 12.5 MG TAB PO SCH ×2 (06:31→16:59)
[2017-02-14 06:42] LABS: Basophils % (A) 0 %; CH 29.1; CHCM 32.5; Eosinophils % (A) 0 %; HCT 38.1 % (39.0-53.0); HDW 2.69; Luc # (Auto) 0.08; Luc % (Auto) 1; Lymphocytes # (A) 0.6 k/uL (1.0-4.8); Lymphocytes % (A) 4 %; MCH 28.3 pg (25.0-35.0); MCHC 31.5 g/dL (31.0-37.0); Mean Platelet Volume 6.6; Monocytes # (A) 0.5 k/uL (0-1.0); Monocytes % (A) 3 %; Neutrophils # (A) 13.5 k/uL (1.3-7.7); Neutrophils % (A) 92 %; RBC 4.24 m/uL (4.30-5.90); RDW 13.2 % (11.5-15.5); WBC 14.7 k/uL (3.8-10.6); WBC (Perox) 14.91
[2017-02-14] MEDS: TIOTROPIUM 18 MCG/PUFF INHALER INHALATION SCH (06:57)
[2017-02-14] MEDS: LEVALBUTEROL NEB 1.25 MG/3 ML AMP INHALATION SCH ×3 (06:57→20:07)
[2017-02-14] MEDS: SYMBICORT 160-4.5 MCG INHALER INHALATION SCH ×2 (06:57→20:07)
[2017-02-14 07:00] LABS: ALT 26 U/L (21-72); AST 24 U/L (17-59); Alkaline Phosphatase 65 U/L (38-126); Blood Urea Nitrogen 41 mg/dL (9-20); Calcium 8.8 mg/dL (8.4-10.2); Carbon Dioxide 27 mmol/L (22-30); Chloride 107 mmol/L (98-107); Glucose 110 mg/dL (74-99); Non-African American GFR(MDRD) >60 (>60 ml/min/1.73 sqM); Total Bilirubin 0.5 mg/dL (0.2-1.3); Total Protein 6.3 g/dL (6.3-8.2)
[2017-02-14 07:01] LABS: Anion Gap 6 mmol/L; Sodium 140 mmol/L (137-145)
[2017-02-14] MEDS: HEPARIN SODIUM,PORCINE 5,000 UNIT/ML 1 ML VIAL SQ SCH ×2 (07:31→21:23)
[2017-02-14] MEDS: ASCORBIC ACID 500 MG TAB PO SCH (07:31)
[2017-02-14] MEDS: B COMPLEX-VIT C-VIT E-ZINC 1 EACH TAB PO SCH (07:32)
[2017-02-14] MEDS: FAMOTIDINE 20 MG TAB PO SCH (07:32)
[2017-02-14] MEDS: CALCIUM CARB-VIT D 500MG-200UN 1 EACH TAB PO SCH (07:32)
[2017-02-14] MEDS: CHOLECALCIFEROL 1,000 UNIT TAB PO SCH (07:32)
[2017-02-14] MEDS: LOSARTAN 50 MG TAB PO SCH ×2 (07:32→21:23)
[2017-02-14] MEDS: MULTIVITAMINS, THERA 1 EACH TAB PO SCH (11:50)
[2017-02-14 11:52] LABS: Glucose,Whole Blood 116 mg/dL (75-99)
--- NOTE | 2017-02-14 14:27 | P.PN ---
Subjective Principal diagnosis: Acute exacerbation of chronic obstructive pulmonary disease This is a very pleasant 76-year-old gentleman who follows with Dr. Hi in our office for chronic obstructive pulmonary disease. He was admitted on 2016 for an acute exacerbation of the same. He had traveled from [place] with worsening shortness of breath cough and congestion. Chest x-ray did not reveal any radha pulmonary edema or pneumonia. Seen again today 02/14/2017 in follow- up on the selective care unit. He is awake and alert in no acute distress. He is breathing better today as compared to yesterday but not quite back to his baseline. He remains on high flow nasal cannula to maintain O2 saturations in the 90s. He is quite dyspneic on conversation and minimal exertion. Objective - Vital Signs Vital signs: Vital Signs Temp 98.9 F 02/14/17 11:17 Pulse 78 02/14/17 13:47 Resp 18 02/14/17 13:35 BP 156/73 02/14/17 11:17 Pulse Ox 97 02/14/17 13:38 Intake & Output 02/13/17 02/14/17 02/14/17 18:59 06:59 18:59 Intake Total 970 630 Output Total 600 350 250 Balance 370 -350 380 Weight 69.6 kg Intake: Oral 970 630 Output: Urine 600 350 250 Other: Voiding Method Bedside Commode Bedside Commode Urinal Urinal # Voids 2 1 - Exam GENERAL EXAM: Alert, dyspneic on minimal exertion. HEAD: Normocephalic. EYES: Normal reaction of pupils, equal size. NOSE: Clear with pink turbinates. Nasal prongs in place. THROAT: No erythema or exudates. NECK: No masses, no JVD. CHEST: No chest wall deformity. LUNGS: Equal air entry with bilateral end expiratory wheeze, few scattered rhonchi. Diminished throughout.r CVS: S1 and S2 normal with no audible mumurs, regular rhythm. ABDOMEN: No hepatosplenomegaly, normal bowel sounds, no guarding or rigidity. SPINE: No scoliosis or deformity SKIN: No rashes CENTRAL NERVOUS SYSTEM: No focal deficits, tone is normal in all 4 extremities. Extremities: There is no significant peripheral edema. No clubbing, no cyanosis. Peripheral pulses are intact. - Labs CBC & Chem 7: 02/14/17 05:52 02/14/17 05:52 Labs: Abnormal Lab Results - Last 24 Hours (Table) 02/13/17 02/13/17 02/14/17 Range/Units 16:34 20:53 05:52 WBC 14.7 H (3.8-10.6) k/uL RBC 4.24 L (4.30-5.90) m/uL Hgb 12.0 L (13.0-17.5) gm/dL Hct 38.1 L (39.0-53.0) % Neutrophils # 13.5 H (1.3-7.7) k/uL Lymphocytes # 0.6 L (1.0-4.8) k/uL BUN (9-20) mg/dL Glucose (74-99) mg/dL POC Glucose (mg/dL) 143 H 143 H (75-99) mg/dL Albumin (3.5-5.0) g/dL 02/14/17 02/14/17 02/14/17 Range/Units 05:52 06:25 11:47 WBC (3.8-10.6) k/uL RBC (4.30-5.90) m/uL Hgb (13.0-17.5) gm/dL Hct (39.0-53.0) % Neutrophils # (1.3-7.7) k/uL Lymphocytes # (1.0-4.8) k/uL BUN 41 H (9-20) mg/dL Glucose 110 H (74-99) mg/dL POC Glucose (mg/dL) 115 H 116 H (75-99) mg/dL Albumin 3.4 L (3.5-5.0) g/dL Assessment and Plan Plan: Impression: #1 Acute exacerbation of chronic obstructive pulmonary disease, complicated by purulent tracheobronchitis. #2 Hypertension, history of. #3 Nonischemic cardiomyopathy status post biventricular ICD placement. #4 Osteoarthritis. Plan: The patient was seen and evaluated by Dr. Hi. Continues to improve daily. He has still not quite back to his baseline. We'll continue with his current medications. We will increase his activity as tolerated. We'll continue to follow.
[2017-02-14] MEDS: AZITHROMYCIN 500 MG TAB PO SCH (14:52)
--- NOTE | 2017-02-14 15:10 | P.PN ---
Subjective Principal diagnosis: Shortness of breath Is a 76-year-old gentleman who follows regularly with Dr. Burgess in the office. He has a past medical history significant for severe nonischemic cardiomyopathy, status post bi-V AICD, and COPD. He presented to the hospital with general feelings of malaise. He also was having exertional dyspnea. Is currently receiving treatment for COPD. We were originally consulted to see the patient because of possible cardiac arrhythmia. Patient's AICD was interrogated, did not reveal any significant arrhythmias. Enzymes came back to be normal. Patient was seen and examined today, states his breathing overall is significantly improved, however with minimal exertion is still quite short of breath. Objective - Vital Signs Vital signs: Vital Signs Temp 98.9 F 02/14/17 11:17 Pulse 78 02/14/17 13:47 Resp 18 02/14/17 13:35 BP 156/73 02/14/17 11:17 Pulse Ox 97 02/14/17 13:38 Intake & Output 02/13/17 02/14/17 02/14/17 18:59 06:59 18:59 Intake Total 970 630 Output Total 600 350 250 Balance 370 -350 380 Weight 69.6 kg Intake: Oral 970 630 Output: Urine 600 350 250 Other: Voiding Method Bedside Commode Bedside Commode Urinal Urinal # Voids 2 1 - Exam PHYSICAL EXAMINATION: HEENT: Head is atraumatic, normocephalic. Pupils equal, round. Neck is supple. There is no elevated jugular venous pressure. HEART EXAMINATION: Heart S1, S2 normal. No murmur or gallop heard. CHEST EXAMINATION:Lungs Reveal scattered coarse rhonchi and wheezing throughout. ABDOMEN: Soft, nontender. Bowel sounds are heard. No organomegaly noted. EXTREMITIES: 2+ peripheral pulses with no evidence of peripheral edema and no calf tenderness noted]. NEUROLOGIC [patient is awake, alert and oriented -3.] . - Labs CBC & Chem 7: 02/14/17 05:52 02/14/17 05:52 Labs: Abnormal Lab Results - Last 24 Hours (Table) 02/13/17 02/13/17 02/14/17 Range/Units 16:34 20:53 05:52 WBC 14.7 H (3.8-10.6) k/uL RBC 4.24 L (4.30-5.90) m/uL Hgb 12.0 L (13.0-17.5) gm/dL Hct 38.1 L (39.0-53.0) % Neutrophils # 13.5 H (1.3-7.7) k/uL Lymphocytes # 0.6 L (1.0-4.8) k/uL BUN (9-20) mg/dL Glucose (74-99) mg/dL POC Glucose (mg/dL) 143 H 143 H (75-99) mg/dL Albumin (3.5-5.0) g/dL 02/14/17 02/14/17 02/14/17 Range/Units 05:52 06:25 11:47 WBC (3.8-10.6) k/uL RBC (4.30-5.90) m/uL Hgb (13.0-17.5) gm/dL Hct (39.0-53.0) % Neutrophils # (1.3-7.7) k/uL Lymphocytes # (1.0-4.8) k/uL BUN 41 H (9-20) mg/dL Glucose 110 H (74-99) mg/dL POC Glucose (mg/dL) 115 H 116 H (75-99) mg/dL Albumin 3.4 L (3.5-5.0) g/dL Assessment and Plan Plan: Assessment and Plan #1 Acute exacerbation of chronic obstructive pulmonary disease, complicated by purulent tracheobronchitis. #2 Hypertension, history of. #3 Nonischemic cardiomyopathy status post biventricular ICD placement. #4 Osteoarthritis. #5 questionable arrhythmia, patient's device was interrogated and did not reveal any evidence of arrhythmia. from Cardiologys standpoint, we will follow this patient with you now on an as- needed basis, please don't hesitate patient's. DNP note has been reviewed, I agree with a documented findings and plan of care. Patient was seen and examined.
[2017-02-14 16:44] LABS: Glucose,Whole Blood 130 mg/dL (75-99)
--- NOTE | 2017-02-14 17:29 | P.PN ---
Subjective Principal diagnosis: Acute exacerbation of COPD Is a 76-year-old male presented with worsening shortness of breath. He is being treated for COPD exacerbation and bronchitis. Failed outpatient treatment. Patient denies any chest pain. Currently still on high flow oxygen. He had episode of nonsustained ventricle tachycardia and then return to paced rhythm. Cardiology are following. His breathing treatments were switched to Xopenex due to tachycardia. Patient denied any heart palpitations or chest pain at that time. Patient was seen by cardiology his device was investigated he had evidence of tachycardia but no evidence of nonsustained V. tach. No change in his medication was advised Objective - Vital Signs Vital signs: Vital Signs Temp 98.1 F 02/14/17 16:00 Pulse 68 02/14/17 16:00 Resp 20 02/14/17 16:00 BP 148/69 02/14/17 16:00 Pulse Ox 97 02/14/17 13:38 Intake & Output 02/13/17 02/14/17 02/14/17 18:59 06:59 18:59 Intake Total 970 630 Output Total 600 350 250 Balance 370 -350 380 Weight 69.6 kg Intake: Oral 970 630 Output: Urine 600 350 250 Other: Voiding Method Bedside Commode Bedside Commode Urinal Urinal # Voids 2 1 - Exam In general patient is alert and oriented in no apparent distress HEENT head normocephalic and atraumatic Neck is supple no JVD no goiter no lymphadenopathy Chest exam reveals distant respiratory sounds with few scattered rhonchi Cardiac exam reveals regular heart sounds no murmurs Abdomen is soft nontender no organomegaly Extremity exam reveals no edema no cyanosis or clubbing - Labs CBC & Chem 7: 02/14/17 05:52 02/14/17 05:52 Labs: Abnormal Lab Results - Last 24 Hours (Table) 02/13/17 02/14/17 02/14/17 Range/Units 20:53 05:52 05:52 WBC 14.7 H (3.8-10.6) k/uL RBC 4.24 L (4.30-5.90) m/uL Hgb 12.0 L (13.0-17.5) gm/dL Hct 38.1 L (39.0-53.0) % Neutrophils # 13.5 H (1.3-7.7) k/uL Lymphocytes # 0.6 L (1.0-4.8) k/uL BUN 41 H (9-20) mg/dL Glucose 110 H (74-99) mg/dL POC Glucose (mg/dL) 143 H (75-99) mg/dL Albumin 3.4 L (3.5-5.0) g/dL 02/14/17 02/14/17 02/14/17 Range/Units 06:25 11:47 16:42 WBC (3.8-10.6) k/uL RBC (4.30-5.90) m/uL Hgb (13.0-17.5) gm/dL Hct (39.0-53.0) % Neutrophils # (1.3-7.7) k/uL Lymphocytes # (1.0-4.8) k/uL BUN (9-20) mg/dL Glucose (74-99) mg/dL POC Glucose (mg/dL) 115 H 116 H 130 H (75-99) mg/dL Albumin (3.5-5.0) g/dL Assessment and Plan Plan: #1 acute exacerbation of chronic obstructive pulmonary disease #2 acute hypoxic respiratory failure #3 acute purulent bronchitis #4 underlying history of hypertension #5 underlying history of congestive heart failure with history of pacemaker and defibrillator placement, patient has severe cardiomyopathy ejection fraction on cardiac catheterization done 1 year ago was 10-15% #6 episode of nonsustained V. tach, however after investigating the patient device that was no evidence of V. tach patient had sinus tachycardia At this time patient was started on IV antibiotic Rocephin and Zithromax, IV steroids Solu-Medrol 60 mg IV every 6 hours, [facility] Pulmonary consultation and cardiology consultation are following Continue was current management will follow closely prognosis is guarded due to the severity of his heart and lung disease
[2017-02-14 21:25] LABS: Glucose,Whole Blood 120 mg/dL (75-99)
[2017-02-15] MEDS: methylPREDNISolone SOD SUCCI 125 MG/2 ML VIAL IV SCH ×4 (00:41→17:20)
[2017-02-15 05:59] LABS: Basophils % (A) 0 %; CH 28.7; CHCM 32.6; Eosinophils % (A) 0 %; HCT 40.1 % (39.0-53.0); HDW 2.73; HGB 12.6 gm/dL (13.0-17.5); Luc # (Auto) 0.04; Luc % (Auto) 0; Lymphocytes # (A) 0.5 k/uL (1.0-4.8); Lymphocytes % (A) 4 %; MCH 27.8 pg (25.0-35.0); MCHC 31.5 g/dL (31.0-37.0); MCV 88.3 fL (80.0-100.0); Monocytes # (A) 0.2 k/uL (0-1.0); Monocytes % (A) 2 %; Neutrophils # (A) 10.6 k/uL (1.3-7.7); Neutrophils % (A) 93 %; RBC 4.54 m/uL (4.30-5.90); WBC 11.4 k/uL (3.8-10.6); WBC (Perox) 12.42
[2017-02-15 06:09] LABS: ALT 40 U/L (21-72); AST 25 U/L (17-59); Alkaline Phosphatase 61 U/L (38-126); Anion Gap 10 mmol/L; Blood Urea Nitrogen 44 mg/dL (9-20); Calcium 8.9 mg/dL (8.4-10.2); Carbon Dioxide 26 mmol/L (22-30); Chloride 105 mmol/L (98-107); Glucose 127 mg/dL (74-99); Non-African American GFR(MDRD) 59 (>60 ml/min/1.73 sqM); Potassium 4.5 mmol/L (3.5-5.1); Sodium 141 mmol/L (137-145); Total Bilirubin 0.5 mg/dL (0.2-1.3); Total Protein 6.3 g/dL (6.3-8.2)
[2017-02-15 06:14] LABS: Glucose,Whole Blood 126 mg/dL (75-99)
[2017-02-15] MEDS: CARVEDILOL 12.5 MG TAB PO SCH ×2 (06:32→17:20)
[2017-02-15] MEDS: INSULIN LISPRO (humaLOG) 300 UNIT/3 ML VIAL SQ SCH ×4 (06:32→21:53)
[2017-02-15] MEDS: LOSARTAN 50 MG TAB PO SCH ×2 (07:43→21:53)
[2017-02-15] MEDS: HEPARIN SODIUM,PORCINE 5,000 UNIT/ML 1 ML VIAL SQ SCH ×2 (07:43→21:53)
[2017-02-15] MEDS: CHOLECALCIFEROL 1,000 UNIT TAB PO SCH (07:43)
[2017-02-15] MEDS: B COMPLEX-VIT C-VIT E-ZINC 1 EACH TAB PO SCH (07:43)
[2017-02-15] MEDS: FAMOTIDINE 20 MG TAB PO SCH (07:43)
[2017-02-15] MEDS: ASCORBIC ACID 500 MG TAB PO SCH (07:43)
[2017-02-15] MEDS: CALCIUM CARB-VIT D 500MG-200UN 1 EACH TAB PO SCH (07:43)
[2017-02-15] MEDS: TIOTROPIUM 18 MCG/PUFF INHALER INHALATION SCH (08:33)
[2017-02-15] MEDS: LEVALBUTEROL NEB 1.25 MG/3 ML AMP INHALATION SCH ×3 (08:33→20:15)
[2017-02-15] MEDS: SYMBICORT 160-4.5 MCG INHALER INHALATION SCH ×2 (08:33→20:14)
[2017-02-15 10:28] VITALS: BMI 21.9
[2017-02-15 11:45] LABS: Glucose,Whole Blood 118 mg/dL (75-99)
--- NOTE | 2017-02-15 12:21 | P.PN ---
Subjective Is a 76-year-old male presented with worsening shortness of breath. He is being treated for COPD exacerbation and bronchitis. Failed outpatient treatment. Patient denies any chest pain. Currently still on high flow oxygen. He had episode of nonsustained ventricle tachycardia and then return to paced rhythm. Cardiology will be consulted. His breathing treatments were switched to Xopenex due to tachycardia. Patient denied any heart palpitations or chest pain at that time. Denies any nausea or vomiting. Denies any bowel movement changes or urinary symptoms. 02/15/2017 patient sitting up in bed. Still complaining of shortness of breath. He received a breathing treatment this morning. Still requiring high flow oxygen. Denies any chest pain. Denies any nausea or vomiting. Denies any bowel movement changes or urinary symptoms Objective - Vital Signs Vital signs: Vital Signs Temp 98.5 F 02/15/17 08:00 Pulse 80 02/15/17 08:49 Resp 20 02/15/17 08:00 BP 148/76 02/15/17 08:00 Pulse Ox 97 02/15/17 08:00 Intake & Output 02/14/17 02/15/17 02/15/17 18:59 06:59 18:59 Intake Total 870 300 240 Output Total 250 275 125 Balance 620 25 115 Weight 69.4 kg 69.4 kg Intake: Oral 870 300 240 Output: Urine 250 275 125 Other: Voiding Method Bedside Commode Bedside Commode Bedside Commode Urinal Urinal Urinal # Voids 1 1 1 # Bowel Movements 1 - Exam Head normocephalic Neck supple Lungs diminished bilaterally with wheezing Heart regular rate and rhythm S1-S2, no rub or gallop Abdomen is soft nontender nondistended positive bowel sounds no hepatosplenomegaly Extremities no edema Neuro alert and orientated to 3 - Labs CBC & Chem 7: 02/15/17 05:42 02/15/17 05:42 Labs: Abnormal Lab Results - Last 24 Hours (Table) 02/14/17 02/14/17 02/15/17 Range/Units 16:42 21:24 05:42 WBC 11.4 H (3.8-10.6) k/uL Hgb 12.6 L (13.0-17.5) gm/dL Neutrophils # 10.6 H (1.3-7.7) k/uL Lymphocytes # 0.5 L (1.0-4.8) k/uL BUN (9-20) mg/dL Glucose (74-99) mg/dL POC Glucose (mg/dL) 130 H 120 H (75-99) mg/dL 02/15/17 02/15/17 02/15/17 Range/Units 05:42 06:11 11:42 WBC (3.8-10.6) k/uL Hgb (13.0-17.5) gm/dL Neutrophils # (1.3-7.7) k/uL Lymphocytes # (1.0-4.8) k/uL BUN 44 H (9-20) mg/dL Glucose 127 H (74-99) mg/dL POC Glucose (mg/dL) 126 H 118 H (75-99) mg/dL Assessment and Plan Plan: #1 acute exacerbation of chronic obstructive pulmonary disease: Continue bronchodilators and IV steroids. Pulmonary service following. Patient still complaining of shortness of breath #2 acute hypoxic respiratory failure secondary to COPD exacerbation and bronchitis #3 acute purulent bronchitis continue azithromycin and Rocephin. No evidence of pneumonia on chest x-ray. Pulmonary following. Failed outpatient antibiotics. #4 underlying history of hypertension #5 underlying history of congestive heart failure with history of pacemaker and defibrillator placement, patient has severe cardiomyopathy ejection fraction on cardiac catheterization done 1 year ago was 10-15% #6 episode of nonsustained ventricle tachycardia:evaluated by cardiology. Device was interrogated and did not reveal any evidence of arrhythmia. GI prophylaxis Pepcid and DVT prophylaxis subcu heparin I performed an examination of the patient and discussed their management with the physician Product Safety Expert. I have reviewed the Physician Product Safety Expert's notes and agree with the documented findings and plan of care
[2017-02-15] MEDS: MULTIVITAMINS, THERA 1 EACH TAB PO SCH (12:22)
--- NOTE | 2017-02-15 13:57 | P.PN ---
Subjective Principal diagnosis: Acute exacerbation of chronic obstructive pulmonary disease This is a very pleasant 76-year-old gentleman who follows with Dr. Hi in our office for chronic obstructive pulmonary disease. He was admitted on 2016 for an acute exacerbation of the same. He had traveled from [place] with worsening shortness of breath cough and congestion. Chest x-ray did not reveal any radha pulmonary edema or pneumonia. Seen again today 02/14/2017 in follow- up on the selective care unit. He is awake and alert in no acute distress. He is breathing better today as compared to yesterday but not quite back to his baseline. He remains on high flow nasal cannula to maintain O2 saturations in the 90s. He is quite dyspneic on conversation and minimal exertion. The patient is seen again today 02/15/2017 in follow-up on the selective care unit. He is doing better today as compared to yesterday. He denies any worsening shortness of breath. He continues with a loose nonproductive cough. No chills or night sweats. Able to carry on more of a conversation with less dyspnea today. Continue good O2 saturations in the high 90s on 35% FiO2 per high flow nasal cannula. He is afebrile. Objective - Vital Signs Vital signs: Vital Signs Temp 98.5 F 02/15/17 08:00 Pulse 84 02/15/17 13:17 Resp 20 02/15/17 08:00 BP 148/76 02/15/17 08:00 Pulse Ox 97 02/15/17 08:00 Intake & Output 02/14/17 02/15/17 02/15/17 18:59 06:59 18:59 Intake Total 870 300 480 Output Total 250 275 125 Balance 620 25 355 Weight 69.4 kg 69.4 kg Intake: Oral 870 300 480 Output: Urine 250 275 125 Other: Voiding Method Bedside Commode Bedside Commode Bedside Commode Urinal Urinal Urinal # Voids 1 1 1 # Bowel Movements 1 - Exam GENERAL EXAM: Alert, dyspneic on minimal exertion. HEAD: Normocephalic. EYES: Normal reaction of pupils, equal size. NOSE: Clear with pink turbinates. Nasal prongs in place. THROAT: No erythema or exudates. NECK: No masses, no JVD. CHEST: No chest wall deformity. LUNGS: Equal air entry with bilateral end expiratory wheeze, few scattered rhonchi. Diminished throughout.r CVS: S1 and S2 normal with no audible mumurs, regular rhythm. ABDOMEN: No hepatosplenomegaly, normal bowel sounds, no guarding or rigidity. SPINE: No scoliosis or deformity SKIN: No rashes CENTRAL NERVOUS SYSTEM: No focal deficits, tone is normal in all 4 extremities. Extremities: There is no significant peripheral edema. No clubbing, no cyanosis. Peripheral pulses are intact. - Labs CBC & Chem 7: 02/15/17 05:42 02/15/17 05:42 Labs: Abnormal Lab Results - Last 24 Hours (Table) 02/14/17 02/14/17 02/15/17 Range/Units 16:42 21:24 05:42 WBC 11.4 H (3.8-10.6) k/uL Hgb 12.6 L (13.0-17.5) gm/dL Neutrophils # 10.6 H (1.3-7.7) k/uL Lymphocytes # 0.5 L (1.0-4.8) k/uL BUN (9-20) mg/dL Glucose (74-99) mg/dL POC Glucose (mg/dL) 130 H 120 H (75-99) mg/dL 02/15/17 02/15/17 02/15/17 Range/Units 05:42 06:11 11:42 WBC (3.8-10.6) k/uL Hgb (13.0-17.5) gm/dL Neutrophils # (1.3-7.7) k/uL Lymphocytes # (1.0-4.8) k/uL BUN 44 H (9-20) mg/dL Glucose 127 H (74-99) mg/dL POC Glucose (mg/dL) 126 H 118 H (75-99) mg/dL Assessment and Plan Plan: Impression: #1 Acute exacerbation of chronic obstructive pulmonary disease, complicated by purulent tracheobronchitis. #2 Hypertension, history of. #3 Nonischemic cardiomyopathy status post biventricular ICD placement. #4 Osteoarthritis. Plan: The patient was seen and evaluated by Dr. Hi. We'll continue with his current medications. We will increase his activity as tolerated. We'll continue to follow. The patient has been slow to progress however he may be ready for discharge by tomorrow.
--- NOTE | 2017-02-15 14:24 | XR ---
EXAMINATION TYPE: XR chest 1V portable DATE OF EXAM: 02/15/2017 2:19 PM COMPARISON: 02/11/2017 HISTORY: Shortness of breath TECHNIQUE: Single frontal view of the chest is obtained. FINDINGS: There is no focal air space opacity, pleural effusion, or pneumothorax seen. The cardiac silhouette size is within normal limits. The osseous structures are intact. Cardiac device noted wi th arthropathy of the shoulders and diffuse osteopenia. No overt failure. IMPRESSION: No acute process.
[2017-02-15] MEDS: AZITHROMYCIN 500 MG TAB PO SCH (14:28)
[2017-02-15 17:17] LABS: Glucose,Whole Blood 105 mg/dL (75-99)
[2017-02-15 21:40] LABS: Glucose,Whole Blood 122 mg/dL (75-99)
[2017-02-15] MEDS: guaiFENesin 600 MG TABLET.ER PO SCH (21:53)
[2017-02-16] MEDS: methylPREDNISolone SOD SUCCI 125 MG/2 ML VIAL IV SCH ×5 (01:02→23:28)
[2017-02-16 05:59] LABS: Glucose,Whole Blood 134 mg/dL (75-99)
[2017-02-16] MEDS: CARVEDILOL 12.5 MG TAB PO SCH ×2 (06:27→17:56)
[2017-02-16] MEDS: INSULIN LISPRO (humaLOG) 300 UNIT/3 ML VIAL SQ SCH ×4 (06:27→20:14)
[2017-02-16 06:36] LABS: ALT 46 U/L (21-72); AST 29 U/L (17-59); Alkaline Phosphatase 58 U/L (38-126); Anion Gap 9 mmol/L; Blood Urea Nitrogen 46 mg/dL (9-20); Calcium 8.7 mg/dL (8.4-10.2); Carbon Dioxide 25 mmol/L (22-30); Chloride 106 mmol/L (98-107); Glucose 126 mg/dL (74-99); Non-African American GFR(MDRD) >60 (>60 ml/min/1.73 sqM); Potassium 4.5 mmol/L (3.5-5.1); Sodium 140 mmol/L (137-145); Total Bilirubin 0.6 mg/dL (0.2-1.3); Total Protein 6.2 g/dL (6.3-8.2)
[2017-02-16 06:53] LABS: Basophils % (A) 0 %; CH 29.4; CHCM 33.7; Eosinophils % (A) 0 %; HCT 39.3 % (39.0-53.0); HDW 2.81; Luc # (Auto) 0.03; Luc % (Auto) 0; Lymphocytes # (A) 0.4 k/uL (1.0-4.8); Lymphocytes % (A) 4 %; MCH 28.9 pg (25.0-35.0); MCV 87.4 fL (80.0-100.0); Mean Platelet Volume 6.5; Monocytes # (A) 0.3 k/uL (0-1.0); Monocytes % (A) 3 %; Neutrophils # (A) 9.5 k/uL (1.3-7.7); Neutrophils % (A) 92 %; RDW 12.7 % (11.5-15.5); WBC 10.3 k/uL (3.8-10.6); WBC (Perox) 10.66
[2017-02-16] MEDS: CHOLECALCIFEROL 1,000 UNIT TAB PO SCH (08:16)
[2017-02-16] MEDS: B COMPLEX-VIT C-VIT E-ZINC 1 EACH TAB PO SCH (08:16)
[2017-02-16] MEDS: FAMOTIDINE 20 MG TAB PO SCH (08:16)
[2017-02-16] MEDS: ASCORBIC ACID 500 MG TAB PO SCH (08:16)
[2017-02-16] MEDS: LOSARTAN 50 MG TAB PO SCH ×2 (08:16→20:14)
[2017-02-16] MEDS: guaiFENesin 600 MG TABLET.ER PO SCH ×2 (08:16→20:14)
[2017-02-16] MEDS: CALCIUM CARB-VIT D 500MG-200UN 1 EACH TAB PO SCH (08:17)
[2017-02-16] MEDS: HEPARIN SODIUM,PORCINE 5,000 UNIT/ML 1 ML VIAL SQ SCH ×2 (08:17→20:14)
[2017-02-16] MEDS: SYMBICORT 160-4.5 MCG INHALER INHALATION SCH ×2 (08:37→20:44)
[2017-02-16] MEDS: LEVALBUTEROL NEB 1.25 MG/3 ML AMP INHALATION SCH ×3 (08:37→20:44)
[2017-02-16] MEDS: TIOTROPIUM 18 MCG/PUFF INHALER INHALATION SCH (09:04)
--- NOTE | 2017-02-16 10:45 | P.PN ---
Subjective Is a 76-year-old male presented with worsening shortness of breath. He is being treated for COPD exacerbation and bronchitis. Failed outpatient treatment. Patient denies any chest pain. Currently still on high flow oxygen. He had episode of nonsustained ventricle tachycardia and then return to paced rhythm. Cardiology will be consulted. His breathing treatments were switched to Xopenex due to tachycardia. Patient denied any heart palpitations or chest pain at that time. Denies any nausea or vomiting. Denies any bowel movement changes or urinary symptoms. 02/15/2017 patient sitting up in bed. Still complaining of shortness of breath. He received a breathing treatment this morning. Still requiring high flow oxygen. Denies any chest pain. Denies any nausea or vomiting. Denies any bowel movement changes or urinary symptoms 02/16/2017 patient had another episode of shortness of breath this morning. Receiving breathing treatment. His off of the high flow oxygen and currently on 2 L satting at 94%. Still having a cough at times. Denies any chest pain. Denies any nausea or vomiting. Having regular bowel movement. She denies any difficulty urinating Objective - Vital Signs Vital signs: Vital Signs Temp 96.9 F L 02/16/17 07:48 Pulse 78 02/16/17 08:53 Resp 20 02/16/17 08:37 BP 159/74 02/16/17 07:48 Pulse Ox 97 02/16/17 08:48 Intake & Output 02/15/17 02/16/17 02/16/17 18:59 06:59 18:59 Intake Total 780 730 Output Total 775 400 150 Balance 5 330 -150 Weight 69.4 kg 69.4 kg Intake: Oral 780 730 Output: Urine 775 400 150 Other: Voiding Method Bedside Commode Bedside Commode Bedside Commode Urinal Urinal Urinal # Voids 2 1 # Bowel Movements 1 - Exam Head normocephalic Neck supple Lungs diminished bilaterally with wheezing Heart regular rate and rhythm S1-S2, no rub or gallop Abdomen is soft nontender nondistended positive bowel sounds no hepatosplenomegaly Extremities no edema Neuro alert and orientated to 3 - Labs CBC & Chem 7: 02/16/17 05:44 02/16/17 05:44 Labs: Abnormal Lab Results - Last 24 Hours (Table) 02/15/17 02/15/17 02/15/17 Range/Units 11:42 13:41 17:04 Neutrophils # (1.3-7.7) k/uL Lymphocytes # (1.0-4.8) k/uL D-Dimer 0.70 H (<0.60) mg/L FEU BUN (9-20) mg/dL Glucose (74-99) mg/dL POC Glucose (mg/dL) 118 H 105 H (75-99) mg/dL Total Protein (6.3-8.2) g/dL Albumin (3.5-5.0) g/dL 02/15/17 02/16/17 02/16/17 Range/Units 21:37 05:44 05:44 Neutrophils # 9.5 H (1.3-7.7) k/uL Lymphocytes # 0.4 L (1.0-4.8) k/uL D-Dimer (<0.60) mg/L FEU BUN 46 H (9-20) mg/dL Glucose 126 H (74-99) mg/dL POC Glucose (mg/dL) 122 H (75-99) mg/dL Total Protein 6.2 L (6.3-8.2) g/dL Albumin 3.3 L (3.5-5.0) g/dL 02/16/17 Range/Units 05:57 Neutrophils # (1.3-7.7) k/uL Lymphocytes # (1.0-4.8) k/uL D-Dimer (<0.60) mg/L FEU BUN (9-20) mg/dL Glucose (74-99) mg/dL POC Glucose (mg/dL) 134 H (75-99) mg/dL Total Protein (6.3-8.2) g/dL Albumin (3.5-5.0) g/dL Assessment and Plan Plan: #1 acute exacerbation of chronic obstructive pulmonary disease: Continue bronchodilators and IV steroids. Pulmonary service following. Patient still complaining of shortness of breath. Chest x-ray from yesterday was negative. #2 acute hypoxic respiratory failure secondary to COPD exacerbation and bronchitis #3 acute purulent bronchitis continue azithromycin and Rocephin. No evidence of pneumonia on chest x-ray. Pulmonary following. Failed outpatient antibiotics. #4 underlying history of hypertension #5 underlying history of congestive heart failure with history of pacemaker and defibrillator placement, patient has severe cardiomyopathy ejection fraction on cardiac catheterization done 1 year ago was 10-15% #6 episode of nonsustained ventricle tachycardia:evaluated by cardiology. Device was interrogated and did not reveal any evidence of arrhythmia. GI prophylaxis Pepcid and DVT prophylaxis subcu heparin Transfer patient to a regular medical floor I performed an examination of the patient and discussed their management with the physician Residential Electrician. I have reviewed the Physician Residential Electrician's notes and agree with the documented findings and plan of care
[2017-02-16] MEDS: MULTIVITAMINS, THERA 1 EACH TAB PO SCH (10:50)
[2017-02-16 11:39] LABS: Glucose,Whole Blood 104 mg/dL (75-99)
[2017-02-16] MEDS ORDERED: RX INFO: IV CONTRAST WAS GIVEN 1 EACH MISC MISCELLANE PRN (11:59)
--- NOTE | 2017-02-16 12:03 | P.PN ---
Subjective Principal diagnosis: Acute exacerbation of chronic obstructive pulmonary disease This is a very pleasant 76-year-old gentleman who follows with Dr. Hi in our office for chronic obstructive pulmonary disease. He was admitted on 2016 for an acute exacerbation of the same. He had traveled from [place] with worsening shortness of breath cough and congestion. Chest x-ray did not reveal any radha pulmonary edema or pneumonia. Seen again today 02/14/2017 in follow- up on the selective care unit. He is awake and alert in no acute distress. He is breathing better today as compared to yesterday but not quite back to his baseline. He remains on high flow nasal cannula to maintain O2 saturations in the 90s. He is quite dyspneic on conversation and minimal exertion. The patient is seen again today 02/15/2017 in follow-up on the selective care unit. He is doing better today as compared to yesterday. He denies any worsening shortness of breath. He continues with a loose nonproductive cough. No chills or night sweats. Able to carry on more of a conversation with less dyspnea today. Continue good O2 saturations in the high 90s on 35% FiO2 per high flow nasal cannula. He is afebrile. She is seen again today 02/16/2017 in follow-up in the selective care unit. His oxygen requirements have improved he is currently down to 2 liters minute per nasal cannula while maintaining O2 saturations in the upper 90s. Unfortunately the patient still has a feeling of breathlessness and quite dyspneic on minimal exertion. A d-dimer 0.70. We will order a CT angiogram to rule out pulmonary embolism. Objective - Vital Signs Vital signs: Vital Signs Temp 97.2 F L 02/16/17 10:55 Pulse 55 L 02/16/17 10:55 Resp 18 02/16/17 10:55 BP 160/86 02/16/17 10:55 Pulse Ox 97 02/16/17 10:55 Intake & Output 02/15/17 02/16/17 02/16/17 18:59 06:59 18:59 Intake Total 780 730 Output Total 775 400 150 Balance 5 330 -150 Weight 69.4 kg 69.4 kg Intake: Oral 780 730 Output: Urine 775 400 150 Other: Voiding Method Bedside Commode Bedside Commode Bedside Commode Urinal Urinal Urinal # Voids 2 1 # Bowel Movements 1 - Exam GENERAL EXAM: Alert, dyspneic on minimal exertion. HEAD: Normocephalic. EYES: Normal reaction of pupils, equal size. NOSE: Clear with pink turbinates. Nasal prongs in place. THROAT: No erythema or exudates. NECK: No masses, no JVD. CHEST: No chest wall deformity. LUNGS: Equal air entry with bilateral end expiratory wheeze, few scattered rhonchi. Diminished throughout.r CVS: S1 and S2 normal with no audible mumurs, regular rhythm. ABDOMEN: No hepatosplenomegaly, normal bowel sounds, no guarding or rigidity. SPINE: No scoliosis or deformity SKIN: No rashes CENTRAL NERVOUS SYSTEM: No focal deficits, tone is normal in all 4 extremities. Extremities: There is no significant peripheral edema. No clubbing, no cyanosis. Peripheral pulses are intact. - Labs CBC & Chem 7: 02/16/17 05:44 02/16/17 05:44 Labs: Abnormal Lab Results - Last 24 Hours (Table) 02/15/17 02/15/17 02/15/17 Range/Units 13:41 17:04 21:37 Neutrophils # (1.3-7.7) k/uL Lymphocytes # (1.0-4.8) k/uL D-Dimer 0.70 H (<0.60) mg/L FEU BUN (9-20) mg/dL Glucose (74-99) mg/dL POC Glucose (mg/dL) 105 H 122 H (75-99) mg/dL Total Protein (6.3-8.2) g/dL Albumin (3.5-5.0) g/dL 02/16/17 02/16/17 02/16/17 Range/Units 05:44 05:44 05:57 Neutrophils # 9.5 H (1.3-7.7) k/uL Lymphocytes # 0.4 L (1.0-4.8) k/uL D-Dimer (<0.60) mg/L FEU BUN 46 H (9-20) mg/dL Glucose 126 H (74-99) mg/dL POC Glucose (mg/dL) 134 H (75-99) mg/dL Total Protein 6.2 L (6.3-8.2) g/dL Albumin 3.3 L (3.5-5.0) g/dL 02/16/17 Range/Units 11:38 Neutrophils # (1.3-7.7) k/uL Lymphocytes # (1.0-4.8) k/uL D-Dimer (<0.60) mg/L FEU BUN (9-20) mg/dL Glucose (74-99) mg/dL POC Glucose (mg/dL) 104 H (75-99) mg/dL Total Protein (6.3-8.2) g/dL Albumin (3.5-5.0) g/dL Assessment and Plan Plan: Impression: #1 Acute exacerbation of chronic obstructive pulmonary disease, complicated by purulent tracheobronchitis. #2 Hypertension, history of. #3 Nonischemic cardiomyopathy status post biventricular ICD placement. #4 Osteoarthritis. Plan: The patient was seen and evaluated by Dr. Hi. We'll go ahead and order a CT angiogram of the chest to rule out pulmonary embolism based on the patient's slow progress despite quit medical treatment. We'll continue with his current medications. We will increase his activity as tolerated. We'll continue to follow.
--- NOTE | 2017-02-16 17:33 | CT ---
EXAMINATION TYPE: CT angio chest DATE OF EXAM: 02/16/2017 5:09 PM COMPARISON: NONE HISTORY: Shortness of breath, worse on exertion CT DLP: 444 mGycm Automated exposure control for dose reduction was used. CONTRAST: CTA scan of the thorax is performed with IV Contrast, patient injected with 100 mL of Omnipaque 350, pulmonary embolism protocol. There are 3-D post processed images.. FINDINGS: There is some 2 x 1 cm focal pleural thickening at the right posterior lung apex. There is no pleural effusion. I see no filling defects in the pulmonary arteries. There is no mediastinal adenopathy. He art size is normal. There is no pericardial effusion. There is spurring in the thoracic spine. There are a few bilateral bronchial lymph nodes that measure up to 1.5 cm. There is no evidence of aortic a neurysm.. IMPRESSION: NO EVIDENCE OF PULMONARY EMBOLISM. PLEURAL AND PULMONARY SCARRING AT THE RIGHT LUNG APEX. MINIMAL JO-ANN ATERAL BRONCHIAL ADENOPATHY.
[2017-02-16] MEDS: AZITHROMYCIN 500 MG TAB PO SCH (17:56)
[2017-02-16 18:06] LABS: Glucose,Whole Blood 118 mg/dL (75-99)
[2017-02-16 20:02] LABS: Glucose,Whole Blood 195 mg/dL (75-99)
[2017-02-17] MEDS: methylPREDNISolone SOD SUCCI 125 MG/2 ML VIAL IV SCH (06:07)
[2017-02-17 07:37] LABS: Glucose,Whole Blood 120 mg/dL (75-99)
[2017-02-17] MEDS: INSULIN LISPRO (humaLOG) 300 UNIT/3 ML VIAL SQ SCH ×4 (07:38→20:15)
[2017-02-17 08:10] LABS: Basophils % (A) 0 %; Eosinophils % (A) 0 %; HCT 39.4 % (39.0-53.0); HDW 2.71; HGB 13.1 gm/dL (13.0-17.5); Luc # (Auto) 0.04; Luc % (Auto) 0; Lymphocytes # (A) 0.5 k/uL (1.0-4.8); Lymphocytes % (A) 5 %; MCH 29.4 pg (25.0-35.0); MCHC 33.4 g/dL (31.0-37.0); MCV 88.2 fL (80.0-100.0); Mean Platelet Volume 6.6; Monocytes # (A) 0.3 k/uL (0-1.0); Monocytes % (A) 2 %; Neutrophils % (A) 93 %; RBC 4.46 m/uL (4.30-5.90); WBC 10.7 k/uL (3.8-10.6); WBC (Perox) 10.61
[2017-02-17] MEDS: guaiFENesin 600 MG TABLET.ER PO SCH ×2 (08:10→20:14)
[2017-02-17] MEDS: B COMPLEX-VIT C-VIT E-ZINC 1 EACH TAB PO SCH (08:10)
[2017-02-17] MEDS: CARVEDILOL 12.5 MG TAB PO SCH ×2 (08:10→15:39)
[2017-02-17] MEDS: CHOLECALCIFEROL 1,000 UNIT TAB PO SCH (08:10)
[2017-02-17] MEDS: ASCORBIC ACID 500 MG TAB PO SCH (08:10)
[2017-02-17] MEDS: LOSARTAN 50 MG TAB PO SCH ×2 (08:10→20:14)
[2017-02-17] MEDS: FAMOTIDINE 20 MG TAB PO SCH (08:10)
[2017-02-17] MEDS: HEPARIN SODIUM,PORCINE 5,000 UNIT/ML 1 ML VIAL SQ SCH ×2 (08:11→20:14)
[2017-02-17 08:18] LABS: ALT 72 U/L (21-72); AST 32 U/L (17-59); Alkaline Phosphatase 55 U/L (38-126); Anion Gap 7 mmol/L; Blood Urea Nitrogen 41 mg/dL (9-20); Calcium 8.8 mg/dL (8.4-10.2); Carbon Dioxide 28 mmol/L (22-30); Chloride 106 mmol/L (98-107); Glucose 121 mg/dL (74-99); Non-African American GFR(MDRD) >60 (>60 ml/min/1.73 sqM); Potassium 4.5 mmol/L (3.5-5.1); Sodium 141 mmol/L (137-145); Total Bilirubin 0.5 mg/dL (0.2-1.3); Total Protein 5.6 g/dL (6.3-8.2)
[2017-02-17] MEDS: SYMBICORT 160-4.5 MCG INHALER INHALATION SCH ×2 (08:53→19:01)
[2017-02-17] MEDS: LEVALBUTEROL NEB 1.25 MG/3 ML AMP INHALATION SCH ×4 (08:53→19:01)
[2017-02-17] MEDS: TIOTROPIUM 18 MCG/PUFF INHALER INHALATION SCH (08:54)
[2017-02-17 10:06] LABS: Manual Review Performed
[2017-02-17] MEDS: CALCIUM CARB-VIT D 500MG-200UN 1 EACH TAB PO SCH (10:40)
--- NOTE | 2017-02-17 10:45 | P.PN ---
Subjective Patient is doing better today. He denies shortness of breath. Objective - Vital Signs Vital signs: Vital Signs Temp 97.3 F L 02/17/17 07:00 Pulse 76 02/17/17 09:05 Resp 16 02/17/17 07:00 BP 129/71 02/17/17 07:00 Pulse Ox 95 02/17/17 07:00 Intake & Output 02/16/17 02/17/17 02/17/17 18:59 06:59 18:59 Intake Total 120 Output Total 350 150 Balance -350 -30 Intake: Oral 120 Output: Urine 350 150 Other: Voiding Method Bedside Commode Bedside Commode Bedside Commode Urinal Urinal Urinal # Voids 1 - Exam General: The patient is awake and alert, in no distress Eye: there is normal conjunctiva bilaterally. Neck: The neck is supple, there is no JVD. Cardiovascular: Normal S1-S2, no S3-S4, no murmurs. Respiratory: Lungs clear to auscultation bilaterally Gastrointestinal: Abdomen is soft, nontender Musculoskeletal: There is no pedal edema. Neurological:. Speech is normal. Skin: Skin is warm and dry - Labs CBC & Chem 7: 02/17/17 07:14 02/17/17 07:14 Labs: Abnormal Lab Results - Last 24 Hours (Table) 02/16/17 02/16/17 02/16/17 Range/Units 11:38 18:04 19:59 WBC (3.8-10.6) k/uL Neutrophils # (1.3-7.7) k/uL Lymphocytes # (1.0-4.8) k/uL BUN (9-20) mg/dL Glucose (74-99) mg/dL POC Glucose (mg/dL) 104 H 118 H 195 H (75-99) mg/dL Total Protein (6.3-8.2) g/dL Albumin (3.5-5.0) g/dL 02/17/17 02/17/17 02/17/17 Range/Units 07:14 07:14 07:35 WBC 10.7 H (3.8-10.6) k/uL Neutrophils # 10.0 H (1.3-7.7) k/uL Lymphocytes # 0.5 L (1.0-4.8) k/uL BUN 41 H (9-20) mg/dL Glucose 121 H (74-99) mg/dL POC Glucose (mg/dL) 120 H (75-99) mg/dL Total Protein 5.6 L (6.3-8.2) g/dL Albumin 2.9 L (3.5-5.0) g/dL Assessment and Plan Plan: #1 acute exacerbation of chronic obstructive pulmonary disease: Continue bronchodilators and IV steroids. Pulmonary service following. Patient still complaining of shortness of breath. Chest x-ray from yesterday was negative. #2 acute hypoxic respiratory failure secondary to COPD exacerbation and bronchitis #3 acute purulent bronchitis continue azithromycin and Rocephin. No evidence of pneumonia on chest x-ray. Pulmonary following. Failed outpatient antibiotics. #4 underlying history of hypertension #5 underlying history of congestive heart failure with history of pacemaker and defibrillator placement, patient has severe cardiomyopathy ejection fraction on cardiac catheterization done 1 year ago was 10-15% #6 episode of nonsustained ventricle tachycardia:evaluated by cardiology. Device was interrogated and did not reveal any evidence of arrhythmia. Wean off IV steroid and decrease the dose to 40 mg twice a day GI prophylaxis Pepcid and DVT prophylaxis subcu heparin
[2017-02-17] MEDS: MULTIVITAMINS, THERA 1 EACH TAB PO SCH (12:01)
[2017-02-17 12:15] LABS: Glucose,Whole Blood 143 mg/dL (75-99)
[2017-02-17] MEDS: AZITHROMYCIN 500 MG TAB PO SCH (15:39)
[2017-02-17 16:45] LABS: Glucose,Whole Blood 112 mg/dL (75-99)
--- NOTE | 2017-02-17 17:26 | PN ---
76-year-old gentleman with a history of COPD exacerbation. The patient is doing better. Feeling better. Less short of breath. The patient had a CT angiogram yesterday. It was negative for pulmonary embolism. We thought that was a possibility given his long car ride back from [place]. He is sitting there with his . He has got some mild chest congestion. Coughing. Not producing any phlegm. Short of breath mostly with exertion. Current vital signs are stable. Temperature 97.3, heart rate 76, respiratory 16, blood pressure 129/71, mean 90, 2 liters saturation 95%. Appears in no acute distress. HEENT examination is grossly unremarkable. Mucous membranes are moist. No oral lesions. Neck is supple. Full range of motion. No adenopathy or thyromegaly. Cardiovascular examination reveals regular rhythm and rate. S1, S2 normal. No S3, S4 or murmur. Lungs reveal a few scattered rhonchi. Some mild expiratory wheezes. No crackles. ABDOMEN: Soft. Bowel sounds are heard. EXTREMITIES: Intact. Labs are reviewed. White count 10.7 hemoglobin and hematocrit and platelet count all normal. Sodium, potassium, chloride and CO2 normal. BUN and creatinine 41 and 1.10. Microbiology is all negative. No new x-rays to report. ASSESSMENT: 1. Chronic obstructive pulmonary disease exacerbation complicated by purulent tracheobronchitis. 2. No evidence of pulmonary embolism by CT angiogram. 3. Hypertension. 4. Nonischemic cardiomyopathy, status post biventricular ICD placement. 5. Degenerative joint disease. PLAN: Will continue to follow. Likely discharge in a day or so. Medications are reviewed. CT angiogram was negative. No additional recommendations are made. Prognosis is guarded.
[2017-02-17 20:11] LABS: Glucose,Whole Blood 172 mg/dL (75-99)
[2017-02-17] MEDS: methylPREDNISolone SOD SUCCI 40 MG/ML 1 ML VIAL IV SCH (20:15)
[2017-02-18 07:41] LABS: Glucose,Whole Blood 105 mg/dL (75-99)
[2017-02-18] MEDS: INSULIN LISPRO (humaLOG) 300 UNIT/3 ML VIAL SQ SCH ×4 (07:49→22:15)
[2017-02-18] MEDS: guaiFENesin 600 MG TABLET.ER PO SCH ×2 (07:57→22:15)
[2017-02-18] MEDS: LOSARTAN 50 MG TAB PO SCH ×2 (07:57→22:15)
[2017-02-18] MEDS: methylPREDNISolone SOD SUCCI 40 MG/ML 1 ML VIAL IV SCH (07:57)
[2017-02-18] MEDS: LEVALBUTEROL NEB 1.25 MG/3 ML AMP INHALATION SCH ×4 (07:58→21:05)
[2017-02-18] MEDS: CHOLECALCIFEROL 1,000 UNIT TAB PO SCH (07:58)
[2017-02-18] MEDS: ASCORBIC ACID 500 MG TAB PO SCH (07:58)
[2017-02-18] MEDS: SYMBICORT 160-4.5 MCG INHALER INHALATION SCH ×2 (07:58→21:05)
[2017-02-18] MEDS: B COMPLEX-VIT C-VIT E-ZINC 1 EACH TAB PO SCH (07:58)
[2017-02-18] MEDS: CARVEDILOL 12.5 MG TAB PO SCH ×2 (07:58→16:43)
[2017-02-18] MEDS: TIOTROPIUM 18 MCG/PUFF INHALER INHALATION SCH (07:58)
[2017-02-18] MEDS: CALCIUM CARB-VIT D 500MG-200UN 1 EACH TAB PO SCH (07:58)
[2017-02-18] MEDS: FAMOTIDINE 20 MG TAB PO SCH (07:59)
[2017-02-18] MEDS: HEPARIN SODIUM,PORCINE 5,000 UNIT/ML 1 ML VIAL SQ SCH ×2 (07:59→22:15)
[2017-02-18 09:21] LABS: Basophils % (A) 0 %; CH 28.7; CHCM 32.6; Eosinophils % (A) 0 %; HCT 44.6 % (39.0-53.0); HDW 2.69; HGB 14.3 gm/dL (13.0-17.5); Luc # (Auto) 0.08; Luc % (Auto) 1; Lymphocytes # (A) 0.8 k/uL (1.0-4.8); Lymphocytes % (A) 5 %; MCH 28.3 pg (25.0-35.0); MCV 88.5 fL (80.0-100.0); Mean Platelet Volume 6.6; Monocytes # (A) 0.5 k/uL (0-1.0); Monocytes % (A) 3 %; Neutrophils # (A) 13.6 k/uL (1.3-7.7); Neutrophils % (A) 91 %; RBC 5.04 m/uL (4.30-5.90); RDW 12.8 % (11.5-15.5); WBC (Perox) 15.36
[2017-02-18 09:36] LABS: ALT 66 U/L (21-72); AST 30 U/L (17-59); Alkaline Phosphatase 59 U/L (38-126); Anion Gap 9 mmol/L; Blood Urea Nitrogen 39 mg/dL (9-20); Calcium 8.8 mg/dL (8.4-10.2); Carbon Dioxide 30 mmol/L (22-30); Chloride 100 mmol/L (98-107); Glucose 163 mg/dL (74-99); Non-African American GFR(MDRD) >60 (>60 ml/min/1.73 sqM); Potassium 4.5 mmol/L (3.5-5.1); Sodium 139 mmol/L (137-145); Total Bilirubin 0.8 mg/dL (0.2-1.3); Total Protein 6.4 g/dL (6.3-8.2)
[2017-02-18 12:03] LABS: Glucose,Whole Blood 97 mg/dL (75-99)
[2017-02-18] MEDS: MULTIVITAMINS, THERA 1 EACH TAB PO SCH (12:23)
--- NOTE | 2017-02-18 14:09 | P.PN ---
Subjective Patient is doing better today. He denies shortness of breath. Objective - Vital Signs Vital signs: Vital Signs Temp 97.4 F L 02/18/17 07:00 Pulse 72 02/18/17 11:30 Resp 16 02/18/17 07:00 BP 146/77 02/18/17 07:00 Pulse Ox 95 02/18/17 08:01 Intake & Output 02/17/17 02/18/17 02/18/17 18:59 06:59 18:59 Intake Total 480 Balance 480 Intake: Oral 480 Other: Voiding Method Bedside Commode Toilet Toilet Urinal Urinal Urinal # Voids 2 - Exam General: The patient is awake and alert, in no distress Eye: there is normal conjunctiva bilaterally. Neck: The neck is supple, there is no JVD. Cardiovascular: Normal S1-S2, no S3-S4, no murmurs. Respiratory: Lungs clear to auscultation bilaterally Gastrointestinal: Abdomen is soft, nontender Musculoskeletal: There is no pedal edema. Neurological:. Speech is normal. Skin: Skin is warm and dry - Labs CBC & Chem 7: 02/18/17 08:46 02/18/17 08:46 Labs: Abnormal Lab Results - Last 24 Hours (Table) 02/17/17 02/17/17 02/18/17 Range/Units 16:43 20:10 07:18 WBC (3.8-10.6) k/uL Neutrophils # (1.3-7.7) k/uL Lymphocytes # (1.0-4.8) k/uL BUN (9-20) mg/dL Glucose (74-99) mg/dL POC Glucose (mg/dL) 112 H 172 H 105 H (75-99) mg/dL Albumin (3.5-5.0) g/dL 02/18/17 02/18/17 Range/Units 08:46 08:46 WBC 15.0 H (3.8-10.6) k/uL Neutrophils # 13.6 H (1.3-7.7) k/uL Lymphocytes # 0.8 L (1.0-4.8) k/uL BUN 39 H (9-20) mg/dL Glucose 163 H (74-99) mg/dL POC Glucose (mg/dL) (75-99) mg/dL Albumin 3.4 L (3.5-5.0) g/dL Assessment and Plan Plan: #1 acute exacerbation of chronic obstructive pulmonary disease: Continue bronchodilators and steroids. Pulmonary service following. #2 acute hypoxic respiratory failure secondary to COPD exacerbation and bronchitis #3 acute purulent bronchitis continue azithromycin and Rocephin. No evidence of pneumonia on chest x-ray. #4 underlying history of hypertension #5 underlying history of congestive heart failure with history of pacemaker and defibrillator placement, patient has severe cardiomyopathy ejection fraction on cardiac catheterization done 1 year ago was 10-15% #6 episode of nonsustained ventricle tachycardia:evaluated by cardiology. Device was interrogated and did not reveal any evidence of arrhythmia. Discontinue IV Solu-Medrol and switched to oral prednisone daily GI prophylaxis Pepcid and DVT prophylaxis subcu heparin
[2017-02-18] MEDS: AZITHROMYCIN 500 MG TAB PO SCH (16:43)
[2017-02-18 17:46] LABS: Glucose,Whole Blood 87 mg/dL (75-99)
[2017-02-18 20:57] LABS: Glucose,Whole Blood 100 mg/dL (75-99)
--- NOTE | 2017-02-19 06:18 | PN ---
This is a 76-year-old gentleman who was admitted with a diagnosis of COPD exacerbation complicated by mild purulent tracheobronchitis. CT angiogram of the chest was negative for PE. He also has a history of hypertension and cardiomyopathy, status post biventricular ICD placement. The patient has history of DJD. He is doing much better. Hopefully discharge tomorrow or so, maybe the next day. Current vital signs are stable. Temperature 97.4, heart rate 65, respiratory rate 16, blood pressure 146/77, mean 100, two liter saturation 95%. Appears in no acute distress, mildly tachypneic and dyspneic. HEENT examination is grossly unremarkable. Mucous membranes are moist. No oral lesions. Neck is supple. Full range of motion. No adenopathy or thyromegaly. Cardiovascular examination reveals regular rhythm and rate. S1, S2 normal. No S3, S4 or murmur. Lungs reveal a few scattered wheezes. Breath sounds are diminished. Air entry is improved. Overall breath sounds are diminished. They are equal though. ABDOMEN: Soft. Bowel sounds are heard. No masses. Extremities are intact. No edema. Skin without rash. Neurological examination is nonfocal. Labs are reviewed. White count 15. Hemoglobin and hematocrit and platelet count all normal. Sodium, potassium, chloride and CO2 normal. BUN and creatinine were 39 and 1.11. No recent x-rays to report. CAT scan was noted yesterday. Medications are reviewed. ASSESSMENT: 1. Chronic obstructive pulmonary disease exacerbation complicated by mild purulent tracheobronchitis. 2. No evidence of pulmonary embolism by CT angiogram. 3. Hypertension. 4. Nonischemic cardiomyopathy, status post biventricular ICD placement. 5. Degenerative joint disease. PLAN: The patient is doing well. Hopefully discharge in the next 24 to 48 hours. No changes in medications. We will continue to follow. He needs to follow with me in the office.
[2017-02-19 07:33] LABS: Glucose,Whole Blood 85 mg/dL (75-99)
[2017-02-19] MEDS: SYMBICORT 160-4.5 MCG INHALER INHALATION SCH ×2 (07:39→19:29)
[2017-02-19] MEDS: LEVALBUTEROL NEB 1.25 MG/3 ML AMP INHALATION SCH ×4 (07:39→19:29)
[2017-02-19] MEDS: TIOTROPIUM 18 MCG/PUFF INHALER INHALATION SCH (08:04)
[2017-02-19] MEDS: INSULIN LISPRO (humaLOG) 300 UNIT/3 ML VIAL SQ SCH ×4 (08:31→20:42)
[2017-02-19] MEDS: CALCIUM CARB-VIT D 500MG-200UN 1 EACH TAB PO SCH (08:34)
[2017-02-19] MEDS: predniSONE 20 MG TAB PO SCH (08:34)
[2017-02-19] MEDS: B COMPLEX-VIT C-VIT E-ZINC 1 EACH TAB PO SCH (08:34)
[2017-02-19] MEDS: LOSARTAN 50 MG TAB PO SCH ×2 (08:34→20:42)
[2017-02-19] MEDS: ASCORBIC ACID 500 MG TAB PO SCH (08:34)
[2017-02-19] MEDS: FAMOTIDINE 20 MG TAB PO SCH (08:34)
[2017-02-19] MEDS: guaiFENesin 600 MG TABLET.ER PO SCH ×2 (08:34→20:42)
[2017-02-19] MEDS: HEPARIN SODIUM,PORCINE 5,000 UNIT/ML 1 ML VIAL SQ SCH ×2 (08:34→20:42)
[2017-02-19] MEDS: CARVEDILOL 12.5 MG TAB PO SCH ×2 (08:34→17:13)
[2017-02-19] MEDS: CHOLECALCIFEROL 1,000 UNIT TAB PO SCH (08:34)
[2017-02-19 08:50] LABS: Basophils % (A) 0 %; CHCM 32.8; Eosinophils # (A) 0.2 k/uL (0-0.7); Eosinophils % (A) 2 %; HCT 44.8 % (39.0-53.0); HGB 14.6 gm/dL (13.0-17.5); Luc # (Auto) 0.14; Luc % (Auto) 1; Lymphocytes # (A) 1.9 k/uL (1.0-4.8); Lymphocytes % (A) 16 %; MCH 28.9 pg (25.0-35.0); MCHC 32.6 g/dL (31.0-37.0); MCV 88.7 fL (80.0-100.0); Mean Platelet Volume 6.6; Monocytes % (A) 8 %; Neutrophils # (A) 9.1 k/uL (1.3-7.7); Neutrophils % (A) 73 %; RBC 5.05 m/uL (4.30-5.90); WBC 12.5 k/uL (3.8-10.6); WBC (Perox) 12.49
[2017-02-19 09:22] LABS: ALT 61 U/L (21-72); AST 26 U/L (17-59); Alkaline Phosphatase 58 U/L (38-126); Anion Gap 7 mmol/L; Blood Urea Nitrogen 36 mg/dL (9-20); Calcium 8.5 mg/dL (8.4-10.2); Carbon Dioxide 32 mmol/L (22-30); Chloride 101 mmol/L (98-107); Glucose 86 mg/dL (74-99); Non-African American GFR(MDRD) 60 (>60 ml/min/1.73 sqM); Sodium 140 mmol/L (137-145); Total Bilirubin 0.6 mg/dL (0.2-1.3)
--- NOTE | 2017-02-19 10:28 | P.PN ---
Subjective Is a 76-year-old male presented with worsening shortness of breath. He is being treated for COPD exacerbation and bronchitis. Failed outpatient treatment. Patient denies any chest pain. Currently still on high flow oxygen. He had episode of nonsustained ventricle tachycardia and then return to paced rhythm. Cardiology will be consulted. His breathing treatments were switched to Xopenex due to tachycardia. Patient denied any heart palpitations or chest pain at that time. Denies any nausea or vomiting. Denies any bowel movement changes or urinary symptoms. 02/15/2017 patient sitting up in bed. Still complaining of shortness of breath. He received a breathing treatment this morning. Still requiring high flow oxygen. Denies any chest pain. Denies any nausea or vomiting. Denies any bowel movement changes or urinary symptoms 02/16/2017 patient had another episode of shortness of breath this morning. Receiving breathing treatment. His off of the high flow oxygen and currently on 2 L satting at 94%. Still having a cough at times. Denies any chest pain. Denies any nausea or vomiting. Having regular bowel movement. She denies any difficulty urinating 02/19/2017 patient still having some shortness of breath with activity. He is currently off of oxygen as of yesterday afternoon. He is worried about going home to soon. He denies any chest pain. Denies any nausea or vomiting. Denies any bowel movement changes or urinary symptoms. Objective - Vital Signs Vital signs: Vital Signs Temp 98.0 F 02/18/17 21:58 Pulse 80 02/19/17 07:54 Resp 16 02/19/17 07:42 BP 152/80 02/18/17 21:58 Pulse Ox 92 L 02/18/17 21:58 Intake & Output 02/18/17 02/19/17 02/19/17 18:59 06:59 18:59 Intake Total 300 Balance 300 Intake: Oral 300 Other: Voiding Method Toilet Toilet Urinal Urinal # Voids 3 1 - Exam Head normocephalic Neck supple Lungs diminished bilaterally with mild wheeze and improvement in air movement Heart regular rate and rhythm S1-S2, no rub or gallop Abdomen is soft nontender nondistended positive bowel sounds no hepatosplenomegaly Extremities no edema Neuro alert and orientated to 3 - Labs CBC & Chem 7: 02/19/17 08:25 02/19/17 08:25 Labs: Abnormal Lab Results - Last 24 Hours (Table) 02/18/17 02/19/17 02/19/17 Range/Units 20:54 08:25 08:25 WBC 12.5 H (3.8-10.6) k/uL Neutrophils # 9.1 H (1.3-7.7) k/uL Carbon Dioxide 32 H (22-30) mmol/L BUN 36 H (9-20) mg/dL POC Glucose (mg/dL) 100 H (75-99) mg/dL Total Protein 6.0 L (6.3-8.2) g/dL Albumin 3.2 L (3.5-5.0) g/dL Assessment and Plan Plan: #1 acute exacerbation of chronic obstructive pulmonary disease: Continue bronchodilators. was switched over to oral prednisone yesterday. Pulmonary service following recommending another 24-48 hours of hospitalization. Computed tomography scan of the chest is negative for PE #2 acute hypoxic respiratory failure secondary to COPD exacerbation and bronchitis #3 acute purulent bronchitis continue azithromycin and Rocephin. No evidence of pneumonia on chest x-ray. Pulmonary following. Failed outpatient antibiotics. #4 underlying history of hypertension #5 underlying history of congestive heart failure with history of pacemaker and defibrillator placement, patient has severe cardiomyopathy ejection fraction on cardiac catheterization done 1 year ago was 10-15% #6 episode of nonsustained ventricle tachycardia:evaluated by cardiology. Device was interrogated and did not reveal any evidence of arrhythmia. #7 consult physical therapy GI prophylaxis Pepcid and DVT prophylaxis subcu heparin I performed an examination of the patient and discussed their management with the physician [employer] Operator. I have reviewed the Physician [employer]'s notes and agree with the documented findings and plan of care
[2017-02-19 11:47] LABS: Glucose,Whole Blood 93 mg/dL (75-99)
[2017-02-19] MEDS: MULTIVITAMINS, THERA 1 EACH TAB PO SCH (13:17)
--- NOTE | 2017-02-19 16:40 | P.PN ---
Subjective On 6-year-old male patient with known history of COPD Hospital as for an acute COPD exacerbation. Noted the patient had failed outpatient treatment and for that reason he was Hospital as for management of COPD an inpatient basis. The patient also has multiple other medical problems and comorbidities. During this hospitalization the patient had a nonsustained ventricular tachycardia and his rhythm went back subsequently to paced rhythm. Cardiology is on the case. In terms of his breathing, the patient is less short of breath. This could congested and less wheezing on today's evaluation is able to speak of. It is. He is in oxygen at 2 L/m nasal cannula and his saturations above 90%. He denies having any syncope or any chest pain. Objective - Vital Signs Vital signs: Vital Signs Temp 97.4 F L 02/19/17 07:00 Pulse 84 02/19/17 16:10 Resp 20 02/19/17 15:00 BP 145/82 02/19/17 15:00 Pulse Ox 95 02/19/17 15:00 Intake & Output 02/18/17 02/19/17 02/19/17 18:59 06:59 18:59 Intake Total 300 Balance 300 Intake: Oral 300 Other: Voiding Method Toilet Toilet Urinal Urinal # Voids 3 1 - Exam The patient appeared well nourished and normally developed. Vital signs as documented. Head exam is unremarkable. No scleral icterus or corneal arcus noted. Neck is without jugular venous distension, thyromegaly, or carotid bruits. Carotid upstrokes are brisk bilaterally. Lung sounds are diminished bilaterally and there are some few scattered expiratory wheezes heard throughout the lung bahena.. Cardiac exam reveals the PMI to be normally sized and situated. Rhythm is regular. First and second heart sounds normal. No murmurs, rubs or gallops. Abdominal exam reveals normal bowel sounds, no masses , no organomegaly and no aortic enlargement. Extremities are nonedematous and both femoral and pedal pulses are normal. - Labs CBC & Chem 7: 02/19/17 08:25 02/19/17 08:25 Labs: Abnormal Lab Results - Last 24 Hours (Table) 02/18/17 02/19/17 02/19/17 Range/Units 20:54 08:25 08:25 WBC 12.5 H (3.8-10.6) k/uL Neutrophils # 9.1 H (1.3-7.7) k/uL Carbon Dioxide 32 H (22-30) mmol/L BUN 36 H (9-20) mg/dL POC Glucose (mg/dL) 100 H (75-99) mg/dL Total Protein 6.0 L (6.3-8.2) g/dL Albumin 3.2 L (3.5-5.0) g/dL Assessment and Plan Plan: Assessment 1 COPD exacerbation, improving and the patient is less short of breath over the past couple of days. CT angios the chest was done and the patient has no evidence of any pulmonary embolism 2 acute on top of chronic hypoxic respiratory failure secondary to COPD exacerbation bronchitis 3 CHF with an ejection fraction of 10-15%. The patient has severe cardiomyopathy 4 nonsustained V. tach, defibrillator is being interrogated a mesh by cardiology 5 hypertension 6 osteoarthritis Plan Continue bronchodilators. The patient is on albuterol nebulized treatments around the clock 4 times a day. Continue Symbicort and Spiriva as maintenance. Put the patient prednisone burst taper starting with 40 mg. Optimize CHF. Discharge planning is in progress.
[2017-02-19] MEDS: AZITHROMYCIN 500 MG TAB PO SCH (17:13)
[2017-02-19 18:01] LABS: Glucose,Whole Blood 117 mg/dL (75-99)
[2017-02-19 20:19] LABS: Glucose,Whole Blood 182 mg/dL (75-99)
[2017-02-19 22:45] VITALS: RESP 16
[2017-02-20 07:32] LABS: Glucose,Whole Blood 84 mg/dL (75-99)
[2017-02-20 07:43] VITALS: BP 137/74; TEMP 97.4
[2017-02-20] MEDS: CARVEDILOL 12.5 MG TAB PO SCH ×2 (08:02→08:49)
[2017-02-20] MEDS: INSULIN LISPRO (humaLOG) 300 UNIT/3 ML VIAL SQ SCH ×2 (08:04→11:45)
[2017-02-20] MEDS: LOSARTAN 50 MG TAB PO SCH (08:49)
[2017-02-20] MEDS: predniSONE 20 MG TAB PO SCH (08:49)
[2017-02-20] MEDS: ASCORBIC ACID 500 MG TAB PO SCH (08:49)
[2017-02-20] MEDS: CHOLECALCIFEROL 1,000 UNIT TAB PO SCH (08:49)
[2017-02-20] MEDS: guaiFENesin 600 MG TABLET.ER PO SCH (08:49)
[2017-02-20] MEDS: FAMOTIDINE 20 MG TAB PO SCH (08:49)
[2017-02-20] MEDS: B COMPLEX-VIT C-VIT E-ZINC 1 EACH TAB PO SCH (08:49)
[2017-02-20] MEDS: HEPARIN SODIUM,PORCINE 5,000 UNIT/ML 1 ML VIAL SQ SCH (08:50)
[2017-02-20] MEDS: LEVALBUTEROL NEB 1.25 MG/3 ML AMP INHALATION SCH ×2 (08:57→12:00)
[2017-02-20] MEDS: TIOTROPIUM 18 MCG/PUFF INHALER INHALATION SCH (08:59)
[2017-02-20] MEDS: SYMBICORT 160-4.5 MCG INHALER INHALATION SCH (08:59)
[2017-02-20] MEDS: CALCIUM CARB-VIT D 500MG-200UN 1 EACH TAB PO SCH (09:55)
--- NOTE | 2017-02-20 11:15 | P.PN ---
Subjective On 6-year-old male patient with known history of COPD Hospital as for an acute COPD exacerbation. Noted the patient had failed outpatient treatment and for that reason he was Hospital as for management of COPD an inpatient basis. The patient also has multiple other medical problems and comorbidities. During this hospitalization the patient had a nonsustained ventricular tachycardia and his rhythm went back subsequently to paced rhythm. Cardiology is on the case. In terms of his breathing, the patient is less short of breath. This could congested and less wheezing on today's evaluation is able to speak of. It is. He is in oxygen at 2 L/m nasal cannula and his saturations above 90%. He denies having any syncope or any chest pain. On 02/20/2017 the patient is being seen in follow-up. The patient is feeling better and the patient is less short of breath. No specific complaints for now. No chest pain. No cough or sputum production. No cardiac arrhythmias have been noted. Objective - Vital Signs Vital signs: Vital Signs Temp 97.4 F L 02/20/17 07:20 Pulse 72 02/20/17 09:12 Resp 16 02/20/17 08:00 BP 137/74 02/20/17 07:20 Pulse Ox 98 02/20/17 09:00 Intake & Output 02/19/17 02/20/17 02/20/17 18:59 06:59 18:59 Intake Total 480 720 Balance 480 720 Intake: Oral 480 720 Other: Voiding Method Toilet Toilet Urinal Urinal # Voids 3 2 - Exam The patient appeared well nourished and normally developed. Vital signs as documented. Head exam is unremarkable. No scleral icterus or corneal arcus noted. Neck is without jugular venous distension, thyromegaly, or carotid bruits. Carotid upstrokes are brisk bilaterally. Lung sounds are diminished bilaterally and there are some few scattered expiratory wheezes heard throughout the lung bahena.. Cardiac exam reveals the PMI to be normally sized and situated. Rhythm is regular. First and second heart sounds normal. No murmurs, rubs or gallops. Abdominal exam reveals normal bowel sounds, no masses , no organomegaly and no aortic enlargement. Extremities are nonedematous and both femoral and pedal pulses are normal. - Labs CBC & Chem 7: 02/19/17 08:25 02/19/17 08:25 Labs: Abnormal Lab Results - Last 24 Hours (Table) 02/19/17 02/19/17 Range/Units 17:46 20:18 POC Glucose (mg/dL) 117 H 182 H (75-99) mg/dL Assessment and Plan Plan: Assessment 1 COPD exacerbation, improving and the patient is less short of breath over the past couple of days. CT angios the chest was done and the patient has no evidence of any pulmonary embolism 2 acute on top of chronic hypoxic respiratory failure secondary to COPD exacerbation bronchitis 3 CHF with an ejection fraction of 10-15%. The patient has severe cardiomyopathy 4 nonsustained V. tach, defibrillator is being interrogated a mesh by cardiology 5 hypertension 6 osteoarthritis Plan Continue bronchodilators. The patient is on albuterol nebulized treatments around the clock 4 times a day. Continue Symbicort and Spiriva as maintenance. Put the patient prednisone burst taper starting with 40 mg. Optimize CHF. Discharge planning is in progress. No other recommendations from the pulmonary standpoint. I think the patient is gradually improving. Increased level of activity as tolerated. No other significant issues otherwise for now.
[2017-02-20 11:40] LABS: Glucose,Whole Blood 91 mg/dL (75-99)
[2017-02-20 12:13] VITALS: PULSE 72
[2017-02-20] MEDS: MULTIVITAMINS, THERA 1 EACH TAB PO SCH (12:36)
--- NOTE | 2017-02-20 13:31 | P.DS ---
Providers Date of admission: 02/11/17 09:59 Expected date of discharge: 02/20/17 Attending physician: Fina Austin Consults: 02/11/17 09:59 Consult Physician Routine Consulting Provider: Cecil Wilson Consult Reason/Comments: COPD Do you want consulting provider notified?: Yes 02/12/17 09:46 Consult Physician Routine Consulting Provider: Yodit Burgess Consult Reason/Comments: Vtach Do you want consulting provider notified?: Yes Primary care physician: Fina Geovanna [facility] Course: Diagnoses on discharge #1 acute exacerbation of chronic obstructive pulmonary disease: Continue bronchodilators. was switched over to oral prednisone yesterday. Pulmonary service following recommending another 24-48 hours of hospitalization. Computed tomography scan of the chest is negative for PE #2 acute hypoxic respiratory failure secondary to COPD exacerbation and bronchitis #3 acute purulent bronchitis continue azithromycin and Rocephin. No evidence of pneumonia on chest x-ray. Pulmonary following. Failed outpatient antibiotics. #4 underlying history of hypertension #5 underlying history of congestive heart failure with history of pacemaker and defibrillator placement, patient has severe cardiomyopathy ejection fraction on cardiac catheterization done 1 year ago was 10-15% #6 episode of nonsustained ventricle tachycardia:evaluated by cardiology. Device was interrogated and did not reveal any evidence of arrhythmia. #7 physical debility Hospital course Patient is a 76-year-old male presented with worsening shortness of breath. He is being treated for COPD exacerbation and bronchitis. Failed outpatient treatment. Patient denies any chest pain. Currently still on high flow oxygen. He had episode of nonsustained ventricle tachycardia and then return to paced rhythm. Cardiology will be consulted. His breathing treatments were switched to Xopenex due to tachycardia. Patient denied any heart palpitations or chest pain at that time. Denies any nausea or vomiting. Denies any bowel movement changes or urinary symptoms. 02/15/2017 patient sitting up in bed. Still complaining of shortness of breath. He received a breathing treatment this morning. Still requiring high flow oxygen. Denies any chest pain. Denies any nausea or vomiting. Denies any bowel movement changes or urinary symptoms 02/16/2017 patient had another episode of shortness of breath this morning. Receiving breathing treatment. His off of the high flow oxygen and currently on 2 L satting at 94%. Still having a cough at times. Denies any chest pain. Denies any nausea or vomiting. Having regular bowel movement. She denies any difficulty urinating 02/17/2017 patient is still complaining of severe shortness of breath denies any chest pain pulse ox is 92% on 2 L nasal cannula 02/18/2017 patient is still complaining of shortness of breath he reports minimal improvement since yesterday denies any chest pain 02/19/2017 patient still having some shortness of breath with activity. He is currently off of oxygen as of yesterday afternoon. He is worried about going home to soon. He denies any chest pain. Denies any nausea or vomiting. Denies any bowel movement changes or urinary symptoms. 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 Hi in 1-2 weeks Arrangements were made for home oxygen Patient will also have visiting nurse Plan - Discharge Summary Discharge Medication List Calcium Carbonate/Vitamin D3 [Calcium 600-Vit D3 400 Tablet] 1 tab PO DAILY [History] Losartan [Cozaar] 50 mg PO BID 01/21/15 [History] Multivitamin [Men's Multi-Vitamin] 1 tab PO DAILY 01/21/15 [History] Albuterol Nebulized [Ventolin Nebulized] 2.5 mg INHALATION RT-QID PRN 12/03/15 [ History] Aspirin 325 mg PO DAILY 02/12/17 [History] Carvedilol [Coreg] 12.5 mg PO BID 02/12/17 [History] Cialis 5mg 1 tab PO DAILY 02/12/17 [History] ALPRAZolam [Xanax] 0.5 mg PO QID PRN tab 02/20/17 [Rx] Ascorbic Acid [Vitamin C] 1,000 mg PO DAILY tab 02/20/17 [Rx] B Complex-Vit C-Vit E-Zinc [Z-Bec] 1 each PO DAILY tab 02/20/17 [Rx] Budesonide-Formot 160-4.5 Mcg [Symbicort 160-4.5 Mcg Inhaler] 2 puff INHALATION RT-BID puff 02/20/17 [Rx] Cholecalciferol [Vitamin D3] 2,000 unit PO DAILY tab 02/20/17 [Rx] Tiotropium 18 Mcg/Puff [Spiriva] 1 puff INHALATION RT-DAILY inhaler 02/20/17 [ Rx] guaiFENesin [Mucinex] 1,200 mg PO Q12HR tab 02/20/17 [Rx] predniSONE 40 mg PO DAILY tab 02/20/17 [Rx]
== END 2017-02-20 15:57 | disposition home health service (06) | DRG 190 ==
LOC: EC 07:23 → 6SEL 09:59 → 5MS5E 02-16 16:21
PROVIDERS: ADMIT Internal Medicine; ATTEND Internal Medicine
DX: J44.0 Chronic obstructive pulmonary disease with (acute) lower respiratory infection (principal); J96.21 Acute and chronic respiratory failure with hypoxia; I47.2 Ventricular tachycardia; I42.9 Cardiomyopathy, unspecified; I50.9 Heart failure, unspecified; I11.0 Hypertensive heart disease with heart failure; J20.9 Acute bronchitis, unspecified; J44.1 Chronic obstructive pulmonary disease with (acute) exacerbation; I44.7 Left bundle-branch block, unspecified; I49.9 Cardiac arrhythmia, unspecified; M19.90 Unspecified osteoarthritis, unspecified site; Z79.82 Long term (current) use of aspirin; Z79.899 Other long term (current) drug therapy; Z82.0 Family history of epilepsy and other diseases of the nervous system; Z87.891 Personal history of nicotine dependence; Z95.810 Presence of automatic (implantable) cardiac defibrillator
CPT/HCPCS: 36415; 71010; 71275; 80053; 82550; 82553; 83036; 83735; 83880; 84439; 84443; 84484; 85025; 85379; 85610; 85730; 87040; 93005; 94640; 94644; 94660; 94760